=== PATIENT | male | born 1955 | race Caucasian/White ===

== ENCOUNTER 2016-09-04 10:48 | Inpatient (IN) ==
--- NOTE | 2016-09-04 11:19 | Anesthesia Evaluation PreOp ---
Date of Encounter: 09/04/16 Time of Encounter: 11:16 - Past History Planned Operation: Right caroid endarterectomy Cardiac History: ID, HTN, Hyperlipidemia, Other (hx thoracic outlet syndrome s/ p surgery 1997) Pulmonary History: Former smoker, COPD, Other (hx laryngeal cancer, hx trachestomy s/p reversal) SIDE PANEL HANGER History: CVA, TIA, Other (hx neck surgery) Other Medical History: Renal (ckd stage 2, hx renal artery stent) Anesthesia History: No Prior Anesthetic Complications Alcohol Use: none Drug use: marijuana Medications and Allergies ALPRAZolam [Xanax 1 MG Tablet] 1 mg PO TID 08/25/16 [History] Amlodipine Besylate 10 mg PO DAILY 08/25/16 [History] Aspirin [Lo-Dose Aspirin EC] 81 mg PO DAILY 08/25/16 [History] Atenolol 100 mg PO DAILY 08/25/16 [History] Clopidogrel [Plavix] 75 mg PO DAILY 08/25/16 [History] Oxycodone HCl/Acetaminophen [Percocet 5-325 mg Tablet] 1 each PO BID PRN [History] Sildenafil Citrate [Viagra] 100 mg PO DAILY PRN 08/25/16 [History] Simvastatin [Zocor] 40 mg PO HS 08/25/16 [History] Allergies codeine Adverse Reaction (Verified 08/25/16 07:15) Gastrointestinal Upset - Meds/Allergy Pre-op Review Medications Reviewed: Yes Allergies Reviewed: Yes Beta Blockers on Current Med List: Yes If Beta Blockers taken, Date/Time (Last Dose taken): atenolol 09-04-16 10 am Anesthesia Results - Labs Laboratory Tests 08/18/16 08/18/16 08/18/16 10:32 10:32 10:32 WBC 8.8 Hgb 17.0 H Hct 49.2 Plt Count 194 PT INR APTT 28.3 Sodium 140 Potassium 4.5 Chloride 103 Carbon Dioxide 30 H BUN 17 Creatinine 1.52 H Est GFR ( Amer) 57 L Est GFR (Non-Af Amer) 47 L BUN/Creatinine Ratio 11 Glucose 97 Calculated Osmolality 291 Calcium 10.0 08/30/16 15:01 WBC Hgb Hct Plt Count PT 12.3 H INR 1.1 APTT Sodium Potassium Chloride Carbon Dioxide BUN Creatinine Est GFR ( Amer) Est GFR (Non-Af Amer) BUN/Creatinine Ratio Glucose Calculated Osmolality Calcium - Imaging EKG: report reviewed, image reviewed (SB, moderate IV conduction delay, ST elevation (likely early repolarization)) Anesthesia Exam Last Vital Signs Temp 97.9 F 09/04/16 11:49 Pulse 59 09/04/16 11:49 Resp 18 09/04/16 11:49 BP 171/96 09/04/16 11:49 Pulse Ox 98 09/04/16 11:49 Weight: 83 kg NPO (# of Hours): >> 8 hrs - HEENT Pupil (Motor): Pupils equal, EOMI Mallampati: III Teeth: Edentulous Oral Opening: Greater than 3 - SIDE PANEL HANGER LOC: Oriented - Cardiac Rhythm: Regular Murmur: None - Pulmonary Breath Sounds: bilateral Clear Respiratory Effort: Symmetrical Anesthesia Assess/Plan ASA Score: 3 Modified [place] Scale for Level of Consciousness: Cooperative, oriented, and tranquil Anesthetic Plan: General, Precautions (C-mac due to hx laryngectomy (w removal epiglottis and one vocal cord); preserve spontaneous ventillation) Monitoring Plan: Standard Monitors Recovery Plan: PACU
[2016-09-04] MEDS ORDERED: CeFAZolin Pre 2,000 MG/100 ML 2,000 MG/100 ML BAG IVPB ONE (11:51)
[2016-09-04] MEDS ORDERED: Ringers Solution, Lactated 1,000 ML IVC SCH (12:00)
--- NOTE | 2016-09-04 12:09 | History & Physical Report ---
Date of Encounter: 09/04/16 Time of Encounter: 12:09 24 Hour HP Update - Instructions Instructions: If the History and Physical is less than 30 days old and was completed prior to A.M. admission and or procedure and has NOT been updated on calendar day of procedure please complete this update prior to performing procedure. - Update Patient reports changes in Medical Condition: No Changes in examination, assessment, or condition: No Changes in Medication: No Preop tests/diagnostics Reviewed: Yes Surgery Remains Indicated: Yes Consent for Planned Operative Procedure(s) Verified: Yes - Pre-Operative Checklist Preoperative Checklist Indicated: Yes Prophylactic Antibiotic Ordered: Yes Home Medications Include Beta Wilver: Yes Beta Wilver Taken Today (Day of Surgery): Yes Beta Wilver Taken Yesterday (Day Prior to Surgery): Yes Is VTE Prophylaxis Indicated?: Yes
[2016-09-04] MEDS ORDERED: Albuterol 2.5 MG/3 ML NEBULIZER ONE (12:12)
[2016-09-04] MEDS ORDERED: Albuterol 2.5 MG/3 ML NEBULIZER IH ONE (12:16)
[2016-09-04] MEDS ORDERED: 0.9 % Sodium Chloride 1,000 ML IVC SCH (12:30)
[2016-09-04] MEDS ORDERED: Lidocaine -MPF 2% 2 ML VIAL ONE ×3 (13:43→17:52)
[2016-09-04] MEDS ORDERED: Ondansetron 4 MG/2 ML VIAL ONE (13:43)
[2016-09-04] MEDS ORDERED: *HR* Rocuronium Bromide 50 MG/5 ML VIAL ONE (13:43)
[2016-09-04] MEDS ORDERED: *HR* Propofol 200 MG/20 ML VIAL IVP ONE (13:44)
[2016-09-04] MEDS ORDERED: *HR* Midazolam HCl 2 MG/2 ML VIAL ONE ×2 (13:44→17:52)
[2016-09-04] MEDS ORDERED: Heparin 1,000 UNITS/500 mL NS 500 ML ONE (13:46)
[2016-09-04] MEDS ORDERED: *HR* Remifentanil 1 MG VIAL IVP ONE ×2 (13:48)
[2016-09-04] MEDS ORDERED: Heparin 1,000 UNITS/500 mL NS 1,000 ML ONE (13:56)
[2016-09-04] MEDS ORDERED: Lidocaine 1% 20 ML MDV ONE (13:56)
[2016-09-04] MEDS ORDERED: *HR* FentaNYL (PF) 100 MCG/2 ML VIAL ONE ×2 (14:32→17:52)
[2016-09-04] MEDS ORDERED: EPHEDrine 50 MG/ML VIAL ONE (14:59)
[2016-09-04] MEDS ORDERED: *HR* Etomidate 40 MG/20 ML VIAL IVP ONE (17:52)
[2016-09-04] MEDS ORDERED: *HR* Phenylephrine 10 MG/ML VIAL ONE (17:55)
[2016-09-04] MEDS ORDERED: Dexamethasone 4 MG/ML VIAL ONE (18:01)
--- NOTE | 2016-09-04 18:01 | Operative Note ---
Date of procedure: 09/04/16 Pre-op diagnosis: right carotid stenosis Post-op diagnosis: same Procedure: right carotid endarterectomy with 8 Fr shunt and bovine pericardial patch angioplasty Complications: none Anesthesia: GETA Surgeon: Wiliam Lopez Estimated blood loss (cc): 100 Specimen: right carotid plaque Condition: stable Disposition: PACU Procedure in Detail: History Keith Thompson is a 61-year-old white male who has high-grade carotid artery stenosis by duplex scanning and confirmed on angiography. The patient has a history of head and neck cancer and is status post previous head and neck surgery and irradiation. Approximately 3 years ago he had undergone a left carotid endarterectomy. On surveillance scanning we had noted significant increase in the carotid velocities bilaterally. The most recent study showed significant changes about more so on the right side than on the left. An angiogram was performed which showed a very complex and ulcerated lesion of the right side with occlusion of the right external carotid artery. The patient now comes to surgery for this lesion. Procedure After informed consent was obtained the patient was taken to the operating room. General endotracheal anesthesia was established under arterial line pressure monitoring. The right neck was sterilely prepped and draped. A timeout protocol was observed. An oblique incision was made parallel to the anterior border of the sternocleidomastoid muscle. Dissection was carried down to the carotid sheath. The patient had moderate changes of the soft tissue secondary to his radiation with some fusing of the anatomic planes and a loss in the turgor of the tissue. There was also a blanching of the color of the tissue. Control was obtained of the carotid vessels. It was noted on the angiogram that the lesion was relatively proximal and this required an extension of the skin incision towards the clavicular head with division of the omohyoid muscle in order to obtain appropriate proximal control. After this was accomplished And was given in a dose of 5000 units. After a three-minute delay the vessels were clamped with the internal vessel clamped first. An 11 blade knife and Oneil scissors were used to open the carotid artery. The arteriotomy was very long and measured approximately 8 cm in length with the focus being on the common carotid artery. An 8 [place] shunt was then inserted atraumatically. Patency of the shunt was confirmed by the use of intraoperative Doppler. The endarterectomy was then begun at the distal aspect of the common carotid artery. A very complex and irregular plaque was identified. There appeared to be mixed and heterogeneous cellular elements as well as areas of old hemorrhage and calcific atherosclerotic disease. There were no findings of fresh thrombus. The orifice of the external carotid artery was occluded. There was diffuse atherosclerotic changes. The dissection was carried proximally and distally. The external carotid artery was able to be endarterectomized and opened and excellent retrograde flow was demonstrated. The superior thyroid was also endarterectomized. The endpoint on the internal carotid artery was smooth. No tacking sutures were necessary at this level. At the proximal level the plaque was very complex and needed to be divided in order for it to be excised from the body as it was well fused with the vessel wall and extended even more proximally. With the bulk of the atherosclerotic disease remove the bed of the vessel was then inspected for any residual debris. After this was removed the vessel was closed using a bovine pericardial patch angioplasty. Leaving a small space open on the suture line the shunt was clamped divided and removed and the final few sutures were placed. Appropriate backbleeding and flushing was then performed. The flow was directed first into the external carotid and then finally into the internal carotid artery. The patient tolerated this manipulation well and had no hemodynamic distress. Excellent pulsations and Doppler signals were observed throughout all of the carotid vessels with excellent pulse and signal particularly in the external carotid artery which prior to the endarterectomy was occluded and was without signal. The wound was irrigated and hemostasis achieved. A superficial cervical block using half percent Marcaine was performed. The wound was then closed in layers using absorbable suture. No drains were placed. A dry sterile dressing was applied to the right neck incision. The patient was extubated in the operating room and found to be neurologically stable. He was then taken from the operating room to the recovery room in good condition. The right carotid plaque was submitted for specimen analysis
[2016-09-04] MEDS ORDERED: *HR* Promethazine 25 MG/ML VIAL IVP PRN (18:20)
[2016-09-04] MEDS ORDERED: Albuterol 2.5 MG/3 ML NEBULIZER IH PRN (18:20)
[2016-09-04] MEDS ORDERED: *HR* HYDROmorphone (PF) 1 MG/ML SYRINGE IVP PRN (18:20)
[2016-09-04] MEDS ORDERED: *HR* Morphine 2 MG/ML SYRINGE IVP PRN ×2 (19:14)
[2016-09-04] MEDS ORDERED: *HR* OxyCODONE/APAP 5/325 TABLET PO PRN (19:14)
[2016-09-04] MEDS ORDERED: Acetaminophen 325 MG TABLET PO PRN (19:14)
[2016-09-04] MEDS ORDERED: NON-FORMULARY MEDICATION 1 EACH EACH (Sildenafil Citrate [Viagra] 100 MG) PO PRN (19:14)
[2016-09-04] MEDS ORDERED: Ondansetron 4 MG/2 ML VIAL IVP PRN (19:14)
[2016-09-04] MEDS ORDERED: Naloxone 0.4 MG/ML INJ IVP PRN (19:14)
--- NOTE | 2016-09-04 19:14 | Anesthesia Evaluation Post Op ---
Date of Encounter: 09/04/16 Time of Encounter: 19:14 - Vital Signs Vital Signs: Last Vital Signs Temp 97.2 F L 09/04/16 18:41 Pulse 67 09/04/16 19:07 Resp 18 09/04/16 19:07 BP 124/76 09/04/16 19:07 Pulse Ox 93 09/04/16 19:07 - Lungs Lungs: Clear Ascult./Percussion - Airway Airway: Non-obstructed - Cardiovascular Regular Rate - Mental Status Mental Status: Alert & Oriented, Answers Appropriately - Pain Pain Scale: 2 - Nausea Vomiting Nausea Vomiting: Not Present - Hydration Hydration: NPO, Santos catheter - Discharge PostOp Status: Transfer Patient to floor
[2016-09-04] MEDS ORDERED: Aspirin Enteric Coated 81 MG Tablet PO SCH (21:00)
[2016-09-04] MEDS: amLODIPine 5 MG TABLET PO SCH ×2 (21:32→21:39)
[2016-09-04] MEDS: ALPRAZolam 1 MG TABLET PO SCH (21:32)
[2016-09-04] MEDS ORDERED: ALPRAZolam 1 MG TABLET PO ONE (21:53)
[2016-09-04] MEDS: ceFAZolin 2,000 MG in D5% in Water 100 ML IVPB SCH (23:53)
[2016-09-05 05:03] LABS: Basophils % 0.2 %; Hematocrit 40.9 % (37.5-50.1); Immature Granulocytes % 0.3 % (0-4); Lymphocytes # 0.6 K/mcL (0.6-4.6); Lymphocytes % 4.8 %; Mean Corpuscular HGB Conc 34.2 g/dL (31.6-35.5); Mean Corpuscular Hemoglobin 31.7 pg (28.0-33.3); Mean Corpuscular Volume 92.7 fL (83.0-100.0); Monocytes # 0.3 K/mcL (0.0-1.3); Monocytes % 2.5 %; Platelet Count 173 K/mcL (140-400); Red Blood Count 4.41 M/mcL (4.19-5.50); Red Cell Distribution Width 13.2 % (11.5-14.5); Segmented Neutrophils % 92.2 %
[2016-09-05] MEDS: ceFAZolin 2,000 MG in D5% in Water 100 ML IVPB SCH (07:51)
[2016-09-05] MEDS: ALPRAZolam 1 MG TABLET PO SCH (08:47)
[2016-09-05 11:18] VITALS: BP 122/68
--- NOTE | 2016-09-05 14:32 | Discharge Summary ---
Date of Encounter: 09/05/16 Time of Encounter: 14:30 - Discharge Diagnosis (1) Carotid arterial disease Priority: Primary Status: Acute Comments: High-grade right carotid stenosis. Qualifiers: Laterality: bilateral Qualified Code(s): I77.9 - Disorder of arteries and arterioles, unspecified (2) COPD (chronic obstructive pulmonary disease) Priority: Secondary Status: Chronic Comments: Patient has chronic COPD under medical management. Qualifiers: COPD type: unspecified COPD Qualified Code(s): J44.9 - Chronic obstructive pulmonary disease, unspecified (3) Tobacco abuse Priority: Secondary Status: Chronic Comments: Patient has long-standing chronic tobacco abuse. Patient is aware of the medical dangers of this and has been counseled repeatedly to stop smoking. - Discharge Medications Home Medications: ALPRAZolam [Xanax 1 MG Tablet] 1 mg PO TID 08/25/16 [History] Amlodipine Besylate 10 mg PO HS 08/25/16 [History] Aspirin [Lo-Dose Aspirin EC] 81 mg PO HS 08/25/16 [History] Atenolol 100 mg PO DAILY 08/25/16 [History] Clopidogrel [Plavix] 75 mg PO HS 08/25/16 [History] Oxycodone HCl/Acetaminophen [Percocet 5-325 mg Tablet] 1 each PO BID PRN [History] Sildenafil Citrate [Viagra] 100 mg PO DAILY PRN 08/25/16 [History] Simvastatin [Zocor] 40 mg PO HS 08/25/16 [History] Allergies/Adverse Reactions: Allergies codeine Adverse Reaction (Verified 09/04/16 12:17) Gastrointestinal Upset Date of admission: 09/04/16 18:50 Primary care physician: Damián Cerna MD Consults: None Procedure(s) Performed: Right carotid endarterectomy with bovine pericardial patch angioplasty Discharging clinician: Wiliam Lopez Anticipated date of discharge: 09/05/16 - Patient Status Disposition: Home, Self-Care Condition: Good Functional capacity at discharge: independent ambulation Overall status at discharge: patient is progressing back to baseline - Discharge Instructions Follow Up With: Damián Cerna MD [Primary Care Provider] - 09/11/16 4:15 pm Wiliam Lopez MD [Partnered Physician] - 09/27/16 9:45 am Additional Instructions: Resume usual home medications. Tobacco cessation is critical to long-term health. Patient may ambulate inside and outside as tolerated. Patient is not to drive an automobile. No lifting greater than 10 pounds. No manual labor. Patient is to keep right neck incision dry for total of 5 days following surgery. - Diet and Activity Activity: increase activity as tolerated Diet: advance to your usual diet - Hospital Course Hospital course: Mr. Thompson is a 61 year old male Who was admitted yesterday for right carotid surgery. The patient has had a known history of carotid artery disease. He is status post a right carotid artery duplex scan and angiogram recently which demonstrated a critical lesion. He is status post a left carotid endarterectomy approximately 3-4 years ago. Patient also has a history of head and neck cancer as well as radiation. The patient also had spine surgery. Patient was taken to the operating room and had a right carotid endarterectomy performed under general endotracheal anesthesia. The patient had no periprocedural complications. On the afternoon of postoperative day #1 the patient was stable. He was neurologically intact to his baseline evaluation. His vital signs were stable. He was felt fit for discharge. Information regards to his diet and medications and wound care were provided to the patient prior to discharge. - Time Spent with Patient Total time spent providing and/or coordinating discharge services: Exam Vital Signs, Last 4 Hours Temp Pulse Resp BP Pulse Ox 09/05/16 11:16 97.8 F 59 18 122/68 94 09/05/16 11:00 70 General: Present: Conversant, No Apparent Distress, Well developed, Well nourished HEENT: Present: Normocephaly Neck: Absent: JVD, Tracheal deviation Neuro: Present: Alert and responsive, No focal deficits noted Vascular: Present: Surgical incisions (Right neck incision is clean and dry. There is no hematoma. There is no tracheal deviation.) - VTE Documentation of Mechanical Device: Intermittent pneumatic compression device
== END 2016-09-05 15:25 | disposition home or self-care (01) | DRG 39 ==
LOC: SAMDAY 10:48 → 2NNU 18:50
PROVIDERS: ADMIT Surgery Vascular Surgery; ATTEND Surgery Vascular Surgery

== ENCOUNTER 2018-04-11 08:51 | Inpatient (IN) ==
[2018-04-11] MEDS ORDERED: methylPREDNISolone 125 MG/2 ML VIAL IVP ONE (09:08)
[2018-04-11] MEDS ORDERED: Ipratropium/Albuterol Neb 3 ML IH ONE (09:08)
--- NOTE | 2018-04-11 09:24 | Emergency Department Note ---
Disposition Clinical Impression: Hypoxia, Elevated troponin COPD (chronic obstructive pulmonary disease) Qualifiers: COPD type: unspecified COPD Qualified Code(s): J44.9 - Chronic obstructive pulmonary disease, unspecified Pneumonia Qualifiers: Pneumonia type: due to unspecified organism Laterality: bilateral Lung location: unspecified part of lung Qualified Code(s): J18.9 - Pneumonia, unspecified organism Disposition: Admitted As Inpatient Condition: Fair Referrals: Damián Cerna MD [Primary Care Provider] - Forms: ED Satisfaction Letter General Adult HPI - General Chief complaint: ED Shortness of Breath/Dyspnea Stated complaint: sent from [facility] office for poss pne Time Seen by Provider: 04/11/18 08:59 Source: patient, family Mode of arrival: wheelchair Limitations: no limitations Nursing Notes Reviewed: Yes Vital Signs Reviewed: Yes - History of Present Illness HPI Narrative: 62-year-old male with significant past medical history of coronary artery disease and COPD presenting to the emergency department with chief complaint of cough and shortness of breath. According to the patient he has been sick for approximately 3-4 days. He had cough, fever and overall not feeling well. Had increased shortness of breath. Went to primary care physician's office today for follow-up and was sent here for further evaluation due to hypoxia. In the waiting room patient's initial oxygen saturation was 55% although his hands were cold. Patient was mentating well. states she is been trying NyQuil at home. Cough has resolved but now he is is having worsening shortness of breath. Has had fevers at home but unknown MAXIMUM TEMPERATURE. Pain Scale: 0 - Related Data Home Medications Medication Instructions Recorded Confirmed ALPRAZolam [Xanax 1 MG Tablet] 1 mg PO TID 08/25/16 01/14/18 Amlodipine Besylate 10 mg PO HS 08/25/16 01/14/18 Aspirin [Lo-Dose Aspirin EC] 81 mg PO HS 08/25/16 01/14/18 Atenolol 100 mg PO DAILY 08/25/16 01/14/18 Clopidogrel [Plavix] 75 mg PO HS 08/25/16 01/14/18 Oxycodone HCl/Acetaminophen 1 each PO DAILY 08/25/16 01/14/18 [Percocet 5-325 mg Tablet] Sildenafil Citrate [Viagra] 100 mg PO DAILY PRN 08/25/16 09/04/16 Simvastatin [Zocor] 40 mg PO HS 08/25/16 01/14/18 Previous Rx's Medication Instructions Recorded Nicotine Patch [Nicoderm] 7 mg TD DAILY #21 patch.td24 01/14/18 Nicotine Patch [Nicoderm] 14 mg TD DAILY #21 patch.td24 01/14/18 Nicotine Patch [Nicoderm] 21 mg TD DAILY #21 patch.td24 01/14/18 Allergies Allergy/AdvReac Type Severity Reaction Status Date / Time codeine AdvReac Gastrointestinal Verified 01/14/18 14:14 Upset All systems ED: reviewed and negative except as stated. Constitutional: Reports: fever Eyes: Reports: as per HPI ENT ED: Reports: as per HPI Cardiovascular: Reports: dyspnea on exertion Respiratory: Reports: cough, dyspnea, wheezes. Denies: hemoptysis Gastrointestinal: Reports: as per HPI Genitourinary: Reports: as per HPI Musculoskeletal: Reports: as per HPI Integumentary: Reports: as per HPI Neurological: Reports: as per HPI Psychiatric: Reports: as per HPI Endocrine: Reports: as per HPI Hematological/Lymphatic: Reports: as per HPI Allergic/Immunologic: Reports: as per HPI Past Medical History - Past Medical History Attestation: Yes The following information was validated with the patient. Medical history: Reports: coronary artery disease, CVA, hyperlipidemia, hypertension, myocardial infarction Surgical history: Reports: carotid endarterectomy, orthopedic, other Psychiatric history: Reports: no psych history - Social History Smoking Status: Current every day smoker Smokeless Tobacco Status: No Alcohol use: Reports: none Drug use: Reports: marijuana Physical Exam - General Limitations: no limitations General appearance: alert, in distress (moderate respiratory) - Head Head exam: atraumatic, normocephalic, normal inspection - Eye Eye exam: Absent: scleral icterus - ENT ENT exam: mucous membranes moist - Neck Neck exam: Present: full ROM - Chest Chest inspection: Present: symmetric chest wall rise - Respiratory Respiratory exam: Present: respiratory distress (moderate), other (Coarse breath sounds throughout. expiratory wheezing.) - Cardiovascular Cardiovascular exam: Present: regular rate, normal rhythm, normal heart sounds - Abdominal Exam Abdominal exam: Present: soft, Non-Tender. Absent: distention, guarding, rebound - Extremities Exam Extremities exam: Present: full ROM - Neurological Exam Neurological exam: Present: alert, oriented X3 - Psychiatric Psychiatric exam: Present: normal affect, normal mood - Skin Skin exam: Present: warm Course Course Narrative: 62-year-old male presenting to the emergency department with chief complaint shortness of breath and hypoxia. Patient has not been feeling well for a few days. Fevers, cough. Patient normally does not require oxygen. When patient first arrived oxygen saturation was 55% in the waiting room. Concern that this is a mixture of hypoxia and his hands being cold. Patient was immediately brought back to a trauma critical care resuscitation bay. Patient was placed on a nonrebreather with oxygen saturations in the upper 80s to low 90s. Coarse breath sounds throughout with wheezing. Respiratory brought to bedside. Chest x-ray completed along with laboratory analysis including blood cultures and lactic acid. 3 DuoNeb nebs were given and patient placed on BiPAP. Due to patient's symptoms we will also obtain a CTA once he is more hemodynamically stable. Patient agrees with this plan. Disposition most likely admission but pending results. - Reevaluation(s) Reevaluation #1: Patient's laboratory analysis shows an elevated BNP, elevated troponin. EKG does not show any acute abnormality. Patient also has chronic kidney disease. Chest x-ray concerning for unilateral edema versus multifocal infection. CTA was ordered. CTA does show multifocal pneumonia. No PE. Patient to be started on azithromycin and ceftriaxone. Patient placed on BiPAP and is doing significantly better. He is alert and oriented 3 and hemodynamically stable. At this time will plan to admit the patient. I spoke with the hospitalist [employer] Dr. Swift who agrees to accept the patient at this time. He would like us had an ABG. This has been added. Vital Signs Temperature 97.4 F L 04/11/18 08:53 Pulse Rate 82 04/11/18 08:53 Respiratory Rate 18 04/11/18 08:53 Blood Pressure 135/76 04/11/18 08:53 O2 Sat by Pulse Oximetry 55 04/11/18 08:53 Temperature 97.4 F L 04/11/18 08:53 Pulse Rate 89 04/11/18 11:42 Respiratory Rate 29 04/11/18 11:42 Blood Pressure 142/92 04/11/18 11:42 O2 Sat by Pulse Oximetry 99 04/11/18 11:42 Oxygen Delivery Oxygen Delivery Bipap Medical Decision Making - Lab Data Result diagrams: 04/11/18 09:13 04/11/18 09:02 Lab Results 04/11/18 04/11/18 04/11/18 Range/Units 09:02 09:13 09:13 WBC 7.9 (4.3-11.1) K/mcL RBC 4.31 (4.19-5.50) M/mcL Hgb 13.7 (12.9-16.9) g/dL Hct 39.8 (37.5-50.1) % MCV 92.3 (83.0-100.0) fL MCH 31.8 (28.0-33.3) pg MCHC 34.4 (31.6-35.5) g/dL RDW 13.9 (11.5-14.5) % Plt Count 200 (140-400) K/mcL MPV 11.1 (9.4-12.4) fL Seg Neutrophils % 72.0 % Band Neutrophils % 6.0 H (0-4) % Lymphocytes % 16.0 % Monocytes % 6.0 % Neutrophils # 6.2 (1.6-8.9) K/mcL Lymphocytes # 1.3 (0.6-4.6) K/mcL Monocytes # 0.5 (0.0-1.3) K/mcL Nucleated RBCs/100 WBC 0.3 H (0) /100 WBC Reactive Lymphocytes (Not Present) Toxic Granulation Present A (Not Present) Polychromasia 1+ A (Not Present) Sodium 137 (136-145) mEq/L Potassium 3.4 L (3.5-5.1) mEq/L Chloride 96 L (98-107) mEq/L Carbon Dioxide 31 H (23-29) mEq/L BUN 49 H (8-23) mg/dL Creatinine 1.57 H (0.70-1.30) mg/dL Est GFR ( Amer) 55 L (> 60) Est GFR (Non-Af Amer) 45 L (> 60) BUN/Creatinine Ratio 31 H (6-26) Glucose 118 H (70-105) mg/dL Calculated Osmolality 298 (280-300) Lactic Acid 1.1 (0.5-2.2) mmol/L Calcium 8.9 (8.6-10.3) mg/dL Troponin I 0.07 H* (< 0.04) ng/mL B-Natriuretic Peptide (Less than 100) pg/mL 04/11/18 Range/Units 09:13 WBC (4.3-11.1) K/mcL RBC (4.19-5.50) M/mcL Hgb (12.9-16.9) g/dL Hct (37.5-50.1) % MCV (83.0-100.0) fL MCH (28.0-33.3) pg MCHC (31.6-35.5) g/dL RDW (11.5-14.5) % Plt Count (140-400) K/mcL MPV (9.4-12.4) fL Seg Neutrophils % % Band Neutrophils % (0-4) % Lymphocytes % % Monocytes % % Neutrophils # (1.6-8.9) K/mcL Lymphocytes # (0.6-4.6) K/mcL Monocytes # (0.0-1.3) K/mcL Nucleated RBCs/100 WBC (0) /100 WBC Reactive Lymphocytes (Not Present) Toxic Granulation (Not Present) Polychromasia (Not Present) Sodium (136-145) mEq/L Potassium (3.5-5.1) mEq/L Chloride (98-107) mEq/L Carbon Dioxide (23-29) mEq/L BUN (8-23) mg/dL Creatinine (0.70-1.30) mg/dL Est GFR ( Amer) (> 60) Est GFR (Non-Af Amer) (> 60) BUN/Creatinine Ratio (6-26) Glucose (70-105) mg/dL Calculated Osmolality (280-300) Lactic Acid (0.5-2.2) mmol/L Calcium (8.6-10.3) mg/dL Troponin I (< 0.04) ng/mL B-Natriuretic Peptide 979 H (Less than 100) pg/mL - EKG Data EKG #1 EKG attestation: Yes I reviewed and interpreted this EKG. EKG results narrative: Atrial fibrillation. 97 beats for minute. QRS 119, QTC 478. No sign of acute ST segment elevation or ischemia. Compared to previous EKG completed on 08/18/2016 new Atrial fibrillation noted. Attestation Statement - Attestation Attestation: I, Buzz Ge DO, examined this patient [id number] and my medical decision-making was reviewed with Dr. Moon Francois, Resident Physician. I agree with the documented findings, disposition and treatment plan as described except to the extent set forth below. Please see my progress notes for details.
[2018-04-11 09:34] LABS: Hematocrit 39.8 % (37.5-50.1); Hemoglobin 13.7 g/dL (12.9-16.9); Mean Corpuscular HGB Conc 34.4 g/dL (31.6-35.5); Mean Corpuscular Hemoglobin 31.8 pg (28.0-33.3); Mean Corpuscular Volume 92.3 fL (83.0-100.0); Mean Platelet Volume 11.1 fL (9.4-12.4); Monocytes # 0.5 K/mcL (0.0-1.3); Nucleated Red Blood Cells 0.3 /100 WBC (0); Platelet Count 200 K/mcL (140-400); Red Blood Count 4.31 M/mcL (4.19-5.50); Red Cell Distribution Width 13.9 % (11.5-14.5)
[2018-04-11] MEDS ORDERED: Isovue-370 500 ML BOTTLE IVP ONE (09:35)
[2018-04-11] MEDS: cefTRIAXone 2,000 MG in Water for inj. (sterile) 20 ML 20 ML IVP SCH (09:53)
[2018-04-11] MEDS: Azithromycin 500 MG in D5% in Water 250 ML IVPB SCH (09:53)
[2018-04-11 09:58] LABS: Calcium 8.9 mg/dL (8.6-10.3); Potassium 3.4 mEq/L (3.5-5.1)
[2018-04-11 10:04] LABS: Troponin I 0.07 ng/mL (< 0.04)
[2018-04-11 10:26] LABS: Lymphocytes # 1.3 K/mcL (0.6-4.6); Neutrophils # 6.2 K/mcL (1.6-8.9); Toxic Granulation Present (Not Present)
[2018-04-11 10:28] LABS: Polychromasia 1+ (Not Present)
--- NOTE | 2018-04-11 10:31 | Emergency Department Note ---
Disposition Clinical Impression: COPD (chronic obstructive pulmonary disease), Pneumonia, Hypoxia, Elevated troponin Disposition: Admitted As Inpatient Condition: Fair Referrals: Damián Cerna MD [Primary Care Provider] - Forms: ED Satisfaction Letter Time of Disposition: 12:07 General Adult HPI - General Chief complaint: ED Shortness of Breath/Dyspnea Stated complaint: sent from [facility] office for poss pne Time Seen by Provider: 04/11/18 08:59 Source: patient, family Mode of arrival: wheelchair Limitations: no limitations - History of Present Illness Pain Scale: 0 - Related Data Home Medications Medication Instructions Recorded Confirmed ALPRAZolam [Xanax 1 MG Tablet] 1 mg PO TID 08/25/16 01/14/18 Amlodipine Besylate 10 mg PO HS 08/25/16 01/14/18 Aspirin [Lo-Dose Aspirin EC] 81 mg PO HS 08/25/16 01/14/18 Atenolol 100 mg PO DAILY 08/25/16 01/14/18 Clopidogrel [Plavix] 75 mg PO HS 08/25/16 01/14/18 Oxycodone HCl/Acetaminophen 1 each PO DAILY 08/25/16 01/14/18 [Percocet 5-325 mg Tablet] Sildenafil Citrate [Viagra] 100 mg PO DAILY PRN 08/25/16 09/04/16 Simvastatin [Zocor] 40 mg PO HS 08/25/16 01/14/18 Previous Rx's Medication Instructions Recorded Nicotine Patch [Nicoderm] 7 mg TD DAILY #21 patch.td24 01/14/18 Nicotine Patch [Nicoderm] 14 mg TD DAILY #21 patch.td24 01/14/18 Nicotine Patch [Nicoderm] 21 mg TD DAILY #21 patch.td24 01/14/18 Allergies Allergy/AdvReac Type Severity Reaction Status Date / Time codeine AdvReac Gastrointestinal Verified 01/14/18 14:14 Upset Constitutional: Reports: fever Eyes: Reports: as per HPI ENT ED: Reports: as per HPI Cardiovascular: Reports: dyspnea on exertion Respiratory: Reports: cough, dyspnea, wheezes. Denies: hemoptysis Gastrointestinal: Reports: as per HPI Genitourinary: Reports: as per HPI Musculoskeletal: Reports: as per HPI Integumentary: Reports: as per HPI Neurological: Reports: as per HPI Psychiatric: Reports: as per HPI Endocrine: Reports: as per HPI Hematological/Lymphatic: Reports: as per HPI Allergic/Immunologic: Reports: as per HPI Past Medical History - Past Medical History Medical history: Reports: coronary artery disease, CVA, hyperlipidemia, h ypertension, myocardial infarction Surgical history: Reports: carotid endarterectomy, orthopedic, other Psychiatric history: Reports: no psych history - Social History Smoking Status: Current every day smoker Smokeless Tobacco Status: No Alcohol use: Reports: none Drug use: Reports: marijuana Physical Exam - General Limitations: no limitations General appearance: alert, in distress (moderate respiratory) Course Vital Signs Temperature 97.4 F L 04/11/18 08:53 Pulse Rate 82 04/11/18 08:53 Respiratory Rate 18 04/11/18 08:53 Blood Pressure 135/76 04/11/18 08:53 O2 Sat by Pulse Oximetry 55 04/11/18 08:53 Temperature 97.4 F L 04/11/18 08:53 Pulse Rate 89 04/11/18 11:42 Respiratory Rate 29 04/11/18 11:42 Blood Pressure 142/92 04/11/18 11:42 O2 Sat by Pulse Oximetry 99 04/11/18 11:42 Oxygen Delivery Oxygen Delivery Bipap Medical Decision Making - Lab Data Result diagrams: 04/11/18 09:13 04/11/18 09:02 Lab Results 04/11/18 04/11/18 04/11/18 Range/Units 09:02 09:13 09:13 WBC 7.9 (4.3-11.1) K/mcL RBC 4.31 (4.19-5.50) M/mcL Hgb 13.7 (12.9-16.9) g/dL Hct 39.8 (37.5-50.1) % MCV 92.3 (83.0-100.0) fL MCH 31.8 (28.0-33.3) pg MCHC 34.4 (31.6-35.5) g/dL RDW 13.9 (11.5-14.5) % Plt Count 200 (140-400) K/mcL MPV 11.1 (9.4-12.4) fL Seg Neutrophils % 72.0 % Band Neutrophils % 6.0 H (0-4) % Lymphocytes % 16.0 % Monocytes % 6.0 % Neutrophils # 6.2 (1.6-8.9) K/mcL Lymphocytes # 1.3 (0.6-4.6) K/mcL Monocytes # 0.5 (0.0-1.3) K/mcL Nucleated RBCs/100 WBC 0.3 H (0) /100 WBC Reactive Lymphocytes (Not Present) Toxic Granulation Present A (Not Present) Polychromasia 1+ A (Not Present) Sodium 137 (136-145) mEq/L Potassium 3.4 L (3.5-5.1) mEq/L Chloride 96 L (98-107) mEq/L Carbon Dioxide 31 H (23-29) mEq/L BUN 49 H (8-23) mg/dL Creatinine 1.57 H (0.70-1.30) mg/dL Est GFR ( Amer) 55 L (> 60) Est GFR (Non-Af Amer) 45 L (> 60) BUN/Creatinine Ratio 31 H (6-26) Glucose 118 H (70-105) mg/dL Calculated Osmolality 298 (280-300) Lactic Acid 1.1 (0.5-2.2) mmol/L Calcium 8.9 (8.6-10.3) mg/dL Troponin I 0.07 H* (< 0.04) ng/mL B-Natriuretic Peptide (Less than 100) pg/mL 04/11/18 Range/Units 09:13 WBC (4.3-11.1) K/mcL RBC (4.19-5.50) M/mcL Hgb (12.9-16.9) g/dL Hct (37.5-50.1) % MCV (83.0-100.0) fL MCH (28.0-33.3) pg MCHC (31.6-35.5) g/dL RDW (11.5-14.5) % Plt Count (140-400) K/mcL MPV (9.4-12.4) fL Seg Neutrophils % % Band Neutrophils % (0-4) % Lymphocytes % % Monocytes % % Neutrophils # (1.6-8.9) K/mcL Lymphocytes # (0.6-4.6) K/mcL Monocytes # (0.0-1.3) K/mcL Nucleated RBCs/100 WBC (0) /100 WBC Reactive Lymphocytes (Not Present) Toxic Granulation (Not Present) Polychromasia (Not Present) Sodium (136-145) mEq/L Potassium (3.5-5.1) mEq/L Chloride (98-107) mEq/L Carbon Dioxide (23-29) mEq/L BUN (8-23) mg/dL Creatinine (0.70-1.30) mg/dL Est GFR ( Amer) (> 60) Est GFR (Non-Af Amer) (> 60) BUN/Creatinine Ratio (6-26) Glucose (70-105) mg/dL Calculated Osmolality (280-300) Lactic Acid (0.5-2.2) mmol/L Calcium (8.6-10.3) mg/dL Troponin I (< 0.04) ng/mL B-Natriuretic Peptide 979 H (Less than 100) pg/mL Attestation Statement - Attestation Attestation: I, Buzz Ge DO, examined this patient [id number] and my medical decision-making was reviewed with Dr. Moon Francois, Resident Physician. I agree with the documented findings, disposition and treatment plan as described except to the extent set forth below. Please see my progress notes for details. 62-year-old male presents emergency room for evaluation of progressively worsening shortness of breath. Patient has known history of COPD but does not require oxygen at home. During the triage process the patient is found to have a pulse ox of 55% with what appeared to be good waveform. The placed him on 4 L of oxygen and brought him back. Patient is denying chest pain but does have significant work of breathing shortness of breath. Denies any recent fevers or chills. No complaints of nausea vomiting or diarrhea. He has not had any headaches or vision change. Vital signs reviewed and symptomatically controlled to be established. Respiratory was called to the bedside with breathing treatments and BiPAP ordered. She is resting and sitting upright in the bed. He does have significantly diminished breath sounds bilaterally along with accessory muscle use. Oropharynx is patent. Trachea is midline. No stridor or trismus noted. He has coarse crackles along with diminished aeration noted on bilateral lung exam. Heart is regular. Abdomen is soft no pulsatile masses or lesions. Extremities are normal. No neurologic deficits noted on exam. Patient is alert he is oriented and answering questions appropriately. Symptomatically controlled to be completed. Detailed dyspnea workup and antibiotic regimen started with concern for sepsis versus severe COPD exacerbation. Concerning source would be pulmonary in nature. Appropriate medical intervention has been provided. He does not show any acute signs of decline or blood pressure related abnormality. Patient will be monitored closely and disposition will be determined. See detailed documentation the physical exam, medical intervention, medical decision-making and disposition in the resident physician's note. No critical care applied to the patient's treatment course initially. 1000 Patient has bilateral pneumonia with concern for possible hemothorax. Patient is on blood thinners. Clinical presentation is not consistent with blood in the chest wall. Patient is responding appropriately to the BiPAP and breathing treatments. Pulse ox has stabilized and blood pressure is normalized. Patient does have an elevated troponin with no comparable lab result. Most of this is probably secondary to stress from the infectious etiology. BNP is elevated as well. The remainder of his labs appear to be chronic in nature at this time. Will monitor closely and admission process will be established. CT angiography the chest was added on in light of his renal insufficiency as well as the concerning findings on chest x-ray. 1145 Patient is stabilizing with the BiPAP. Labs are coming back with derangements but appear to be stable. The hospitalist Dr. valiente requested an ABG to be collected but otherwise had no other recommendations. CT angiography confirms multifocal pneumonia. Patient is otherwise clinically stable at this time is significantly better. Patient will be monitored here in the emergency department until admission process is completed patient has diagnosis of sepsis but no acute signs of septic shock with stable vital signs and a normal lactic acid. Patient is otherwise been appropriately intervened for infectious etiology exacerbating COPD.
[2018-04-11] MEDS ORDERED: Aspirin 81 MG TAB.CHEW PO STA (12:07)
[2018-04-11] MEDS ORDERED: *HR* OxyCODONE/APAP 5/325 TABLET PO PRN (12:56)
[2018-04-11 13:09] LABS: ABG Base Excess 3 mEq/L (-2 to 3); ABG HCO3 29 mEq/L (21-27); ABG Oxygen Saturation 88 % (95-98); ABG PCO2 48 mmHg (35-45); ABG PH 7.39 pH Units (7.32-7.45); ABG PO2 56 mmHg (85-104); ABG TCO2 30 mEq/L (20-26)
--- NOTE | 2018-04-11 13:37 | Internal Med History&Physical ---
Date of Encounter: 04/11/18 Time of Encounter: 12:46 Internal Medicine - H&P: HPI Chief complaint: Dyspnea Admitted From: Home History of present illness: Mr. Thompson is a 62 year old male with a possible medical history of COPD, coronary artery disease, tobacco use, hyperlipidemia who presented with a two- day history off progressive worsening of shortness of breath. The patient started with cough 4 days ago and went to his doctor's office. The next day he worked in the yard and since then he has experienced worsening of dyspnea. The patient was brought in after his sats were 55% on room air. He was put on 4 L of oxygen and brought the ER. Patient did not have chest pain but his troponin was borderline elevated at 0.07. The patient was found to be in A. fib without rapid ventricular response. The patient has had previous strokes and TIAs but does not recall having a diagnosis of A. fib in the past. The patient was put on a BiPAP and is doing better now. The patient had a chest x-ray and CTA of which was consistent with bilateral multifocal pneumonia. His influenza test was negative. Past Med Surg Social Fam HX - Past Medical History Medical history: coronary artery disease, CVA, hyperlipidemia, hypertension, myocardial infarction Additional medical history: PVD, CKD, TIA, HEADACHES, LARYNGEAL CANCER, CAROTID STENOSIS, left sided thoracic outlet syndrome Psychiatric history: no psych history - Past Surgical History Surgical History: carotid endarterectomy, orthopedic, other Additional surgical history: RADIATION, C5-C6 SURGERY, LYMPH NODE RESECTION, LARYNGECTOMY, RENAL ARTERY STENT - Social History Smoking Status: Former smoker Smokeless Tobacco Status: No (The patient quit smoking at the end of last year.) Alcohol use: none Drug use: marijuana - Additional Family History Additional family history: The patient's brothers have had heart problems as well as a grandmother. Internal Medicine - H&P: Meds ALPRAZolam [Xanax 1 MG Tablet] 1 mg PO TID 08/25/16 [History] Amlodipine Besylate 10 mg PO HS 08/25/16 [History] Aspirin [Lo-Dose Aspirin EC] 81 mg PO HS 08/25/16 [History] Atenolol 100 mg PO DAILY 08/25/16 [History] Clopidogrel [Plavix] 75 mg PO HS 08/25/16 [History] Oxycodone HCl/Acetaminophen [Percocet 5-325 mg Tablet] 1 each PO DAILY 08/25/16 [History] Sildenafil Citrate [Viagra] 100 mg PO DAILY PRN 08/25/16 [History] Simvastatin [Zocor] 40 mg PO HS 08/25/16 [History] Nicotine Patch [Nicoderm] 7 mg TD DAILY #21 patch.td24 01/14/18 [Rx] Nicotine Patch [Nicoderm] 14 mg TD DAILY #21 patch.td24 01/14/18 [Rx] Nicotine Patch [Nicoderm] 21 mg TD DAILY #21 patch.td24 01/14/18 [Rx] Allergy/AdvReac Type Severity Reaction Status Date / Time codeine AdvReac Gastrointestinal Verified 01/14/18 14:14 Upset All Systems PM: A 10-system review of systems was performed and is negative for pertinent findings except as documented above in the HPI. - Constitutional Vitals: Temp Pulse Resp BP Pulse Ox 97.4 F L 89 29 142/92 99 04/11/18 08:53 04/11/18 11:42 04/11/18 11:42 04/11/18 11:42 04/11/18 11:42 General appearance: Present: A&O X 3, answers questions appropriately Exam: 62 y male in ED bed in mod resp distress. - Respiratory Respiratory exam: Present: decreased breath sounds, prolonged expiratory phase, respiratory distress, wheezes - Cardiovascular Cardiovascular exam: Present: irregular rhythm, +S1, +S2 Internal Med - H&P Results - Labs CBC & Chem 7: 04/11/18 09:13 04/11/18 09:02 Labs: Short CBC 04/11/18 Range/Units 09:13 WBC 7.9 (4.3-11.1) K/mcL Hgb 13.7 (12.9-16.9) g/dL Hct 39.8 (37.5-50.1) % Plt Count 200 (140-400) K/mcL Neutrophils # 6.2 (1.6-8.9) K/mcL BMP 04/11/18 09:02 Sodium 137 Potassium 3.4 L Chloride 96 L Carbon Dioxide 31 H BUN 49 H Creatinine 1.57 H Glucose 118 H Calcium 8.9 Cardiac Enzymes 04/11/18 Range/Units 09:02 Troponin I 0.07 H* (< 0.04) ng/mL - ABG Interpretation ABG results: 04/11/18 13:06 ABG pH 7.39 ABG pCO2 48 H ABG pO2 56 L ABG HCO3 29 H ABG Total CO2 30 H ABG O2 Saturation 88 L ABG Base Excess 3 - EKG Data no acute changes Rhythm: A.Fib - Impressions ITS Impressions Chest X-Ray 04/11/18 09:02 IMPRESSION: 1. Airspace opacities, right greater than left. Differential considerations are broad and include asymmetric edema, pneumonia, or hemorrhage. D/ / 04/11/2018 09:37:45 Kylee Cosme MD / bcarter Interpreting Provider: Kylee Cosme MD Chest CTA 04/11/18 09:35 IMPRESSION: Negative study for pulmonary embolism. Patchy/nodular areas of consolidation and ground-glass opacity to the lungs bilaterally, right more than left and involving all lobes, felt to be most compatible with multifocal infectious/inflammatory process. Follow-up to resolution recommended. Small right pleural effusion. Mediastinal and bilateral hilar lymphadenopathy, nonspecific but likely reactive. Atherosclerosis to include coronary artery disease. D/ / 04/11/2018 11:31:27 Julius Hu MD / lgray Interpreting Provider: Julius Hu MD - Assessment and Plan (1) Pneumonia Current Visit: Yes Status: Acute Assessment and plan: Admit patient to acute medicine with telemetry. Patient will be treated with IV ceftriaxone and azithromycin. Will give oxygen and nebs. Will check a pro- calcitonin level since the white count is not elevated. Note that influenza was negative. Follow blood cultures. Qualifiers: Pneumonia type: due to unspecified organism Laterality: bilateral Lung location: unspecified part of lung Qualified Code(s): J18.9 - Pneumonia, unspecified organism (2) Hypoxia Current Visit: Yes Status: Acute Assessment and plan: Acute on chronic respiratory failure. Supportive therapy with BiPAP and oxygen along with nebs and IV steroids. (3) Elevated troponin Current Visit: Yes Status: Acute Assessment and plan: Check serial troponins. It seems that the first value was elevated from demand ischemia. It could also be elevated from new onset A. fib. (4) A-fib Current Visit: Yes Status: Acute Assessment and plan: [id number] of 4. Continue telemetry. Check troponins. Check echocardiogram. Start patient on Lovenox 1 mg/kg subcutaneous every 12 hours. Once patient is stable will have a detailed discussion with patient regarding future outpatient anticoagulation such as warfarin, apixaban or Xarelto. Qualifiers: Atrial fibrillation type: unspecified Qualified Code(s): I48.91 - Unspecified atrial fibrillation (5) COPD (chronic obstructive pulmonary disease) Current Visit: Yes Status: Chronic Assessment and plan: Nebs, O2, IV steroids. Cont home meds for other ch conditions such as CAD, Anxiety d/o and cervical DDD. Qualifiers: COPD type: unspecified COPD Qualified Code(s): J44.9 - Chronic obstructive pulmonary disease, unspecified - Time Spent With Patient Total time spent is greater than 50% in coordination of care (as documented) at patient's floor/unit and/or counseling patient: Greater than 35 minutes
--- NOTE | 2018-04-11 14:03 | Electrocardiograph Report ---
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
[2018-04-11] MEDS: Pantoprazole 40 MG VIAL IVP SCH (14:52)
[2018-04-11] MEDS ORDERED: ALPRAZolam 1 MG TABLET PO SCH (15:00)
[2018-04-11] MEDS: Ipratropium/Albuterol Neb 3 ML IH SCH ×2 (15:46→20:02)
[2018-04-11] MEDS ORDERED: Potassium Chloride 20 MEQ, Lidocaine 1% 2 ML in D5% in Water 250 ML IVPB ONE (16:36)
[2018-04-11] MEDS: *HR* Enoxaparin 80 MG/0.8 ML SYRINGE SQ SCH (19:11)
[2018-04-11] MEDS: methylPREDNISolone 125 MG/2 ML VIAL IVP SCH (19:11)
[2018-04-11] MEDS: amLODIPine 5 MG TABLET PO SCH (20:00)
[2018-04-12] MEDS: methylPREDNISolone 125 MG/2 ML VIAL IVP SCH ×5 (00:07→23:36)
[2018-04-12] MEDS: Ipratropium/Albuterol Neb 3 ML IH SCH ×7 (00:47→23:05)
[2018-04-12 04:44] LABS: Basophils % 0.2 %; Hematocrit 36.1 % (37.5-50.1); Hemoglobin 12.5 g/dL (12.9-16.9); Immature Granulocytes % 0.7 % (0-4); Lymphocytes # 0.5 K/mcL (0.6-4.6); Lymphocytes % 8.1 %; Mean Corpuscular HGB Conc 34.6 g/dL (31.6-35.5); Mean Corpuscular Hemoglobin 31.6 pg (28.0-33.3); Mean Corpuscular Volume 91.2 fL (83.0-100.0); Mean Platelet Volume 10.9 fL (9.4-12.4); Monocytes # 0.1 K/mcL (0.0-1.3); Monocytes % 2.3 %; Nucleated Red Blood Cells 0.3 /100 WBC (0); Platelet Count 238 K/mcL (140-400); Red Blood Count 3.96 M/mcL (4.19-5.50); Red Cell Distribution Width 13.9 % (11.5-14.5); Segmented Neutrophils % 88.7 %
[2018-04-12 04:52] LABS: BUN/Creatinine Ratio 30 (6-26); Blood Urea Nitrogen 43 mg/dL (8-23); Calcium 8.4 mg/dL (8.6-10.3); Carbon Dioxide 29 mEq/L (23-29); Chloride 97 mEq/L (98-107); Glucose 192 mg/dL (70-105); Osmolality,Calculated 302 (280-300); Potassium 3.7 mEq/L (3.5-5.1); Sodium 138 mEq/L (136-145); eGFR For Non-African Americans 51 (> 60)
[2018-04-12 04:53] LABS: Neutrophils # 5.3 K/mcL (1.6-8.9)
[2018-04-12] MEDS: *HR* Enoxaparin 80 MG/0.8 ML SYRINGE SQ SCH ×2 (05:16→16:13)
[2018-04-12 06:25] LABS: Platelet Estimate Normal (Normal)
[2018-04-12] MEDS: Aspirin Enteric Coated 81 MG Tablet PO SCH (09:16)
[2018-04-12] MEDS: Pantoprazole 40 MG VIAL IVP SCH (09:17)
[2018-04-12] MEDS: cefTRIAXone 2,000 MG in Water for inj. (sterile) 20 ML 20 ML IVP SCH (09:17)
[2018-04-12] MEDS: Azithromycin 500 MG in D5% in Water 250 ML IVPB SCH (09:18)
--- NOTE | 2018-04-12 11:28 | Internal Med Progress Note ---
<PierceMalgorzata Chema - Last Filed: 04/12/18 14:12> Hospitalist Progress Note - Encounter Date of Encounter: 04/12/18 Time of Encounter: 09:34 - Subjective Interval History: Patient sitting up comfortably in bed upon examination. He states that cough and shortness of breath have improved since initial presentation. Patient tolerating decrease supplemental oxygen from 8 L to 5 L. Patient denies lightheadedness, pain, fever, chills, nausea, vomiting. - Exam Vitals: Temp Pulse Resp BP Pulse Ox 97.4 F L 97 18 102/87 92 04/12/18 07:57 04/12/18 07:57 04/12/18 11:10 04/12/18 07:57 04/12/18 11:10 Exam: General: No acute distress Head: normocephalic, atraumatic Eye: EOMI Mouth: Mucosa moist Respiratory: Coarse breath sounds noted throughout, not in respiratory distress Cardiovascular: Irregularly irregular rate and rhythm on telemetry. No edema noted Abdomen: Abdomen is soft, nontender, non-distended. Bowel sounds normal. Musculoskeletal: No cyanosis, clubbing or joint swelling Skin: warm, dry, intact. No rashes or lesions noted. Neuro: Alert oriented x 3, no focal deficits Psych: Patient's mood and affect normal - Assessment and Plan (1) Acute respiratory failure with hypoxia Current Visit: Yes Status: Acute Assessment and Plan: Likely secondary to pneumonia Patient initially on BiPAP, now tolerating 5 L supplemental O2 via mask Not on supplemental O2 at home Wean O2 as tolerated Continue nebs and IV steroids (2) Multifocal pneumonia Current Visit: Yes Status: Acute Assessment and Plan: Suspect possible aspiration pneumonia due to patient's history of esophageal cancer and difficulty swallowing Chest CTA 04/11/18multifocal consolidations and groundglass opacity bilaterally, right more than the left. Small right pleural effusion. Mediastinal and bilateral hilar lymphadenopathy. Discontinued ceftriaxone and azithromycin switched to Unasyn for better anaerobic coverage (stop date 04/19/18) NPO, Modified barium swallow pending (3) COPD (chronic obstructive pulmonary disease) Current Visit: Yes Status: Chronic Assessment and Plan: Acute exacerbation likely secondary to suspected aspiration pneumonia Continue nebs, IV steroids, supplemental O2 (4) A-fib Current Visit: Yes Status: Acute Assessment and Plan: CHADSVASC 4 TTE 04/11/18LVEF 45%, LV segmental wall motion abnormalities. Indeterminate diastolic function. Atypical septal motion consistent with bundle branch block. Biatrial enlargement. Mildmoderate MR, mild TR, mild pulmonary hypertension. Continue Lovenox for now, will transition to oral for discharge pending boogie check (5) CKD (chronic kidney disease) Current Visit: Yes Status: Chronic Assessment and Plan: Chronic, stable Creatinine 1.41, appears to be at baseline (6) Head and neck cancer Current Visit: Yes Status: Chronic Assessment and Plan: Supportive care Failed bedside speech eval, NPO for modified barium swallow (7) Carotid arterial disease Current Visit: Yes Status: Chronic Assessment and Plan: Continue ASA, statin, BB DVT Prophylaxis: SQ Lovenox - Time Spent with Patient Total time spent is greater than 50% in coordination of care (as documented) at patient's floor/unit and/or counseling patient: Internal Medicine: Result - Labs CBC & Chem 7: 04/12/18 04:04 04/12/18 04:04 Labs: Short CBC 04/12/18 Range/Units 04:04 WBC 6.0 (4.3-11.1) K/mcL Hgb 12.5 L (12.9-16.9) g/dL Hct 36.1 L (37.5-50.1) % Plt Count 238 (140-400) K/mcL Neutrophils # 5.3 (1.6-8.9) K/mcL BMP 04/12/18 04:04 Sodium 138 Potassium 3.7 Chloride 97 L Carbon Dioxide 29 BUN 43 H Creatinine 1.41 H Glucose 192 H Calcium 8.4 L Cardiac Enzymes 04/11/18 04/11/18 Range/Units 15:16 21:45 Troponin I 0.06 H* 0.05 H* (< 0.04) ng/mL - ABG Interpretation ABG results: ABG ABG pH 7.39 pH Units (7.32-7.45) 04/11/18 13:06 ABG pCO2 48 mmHg (35-45) H 04/11/18 13:06 ABG pO2 56 mmHg (85-104) L 04/11/18 13:06 ABG O2 Saturation 88 % (95-98) L 04/11/18 13:06 - Impressions Impressions Chest X-Ray 04/11/18 09:02 IMPRESSION: 1. Airspace opacities, right greater than left. Differential considerations are broad and include asymmetric edema, pneumonia, or hemorrhage. D/ / 04/11/2018 09:37:45 Kylee Cosme MD / [facility] Interpreting Provider: Kylee Cosme MD Chest CTA 04/11/18 09:35 IMPRESSION: Negative study for pulmonary embolism. Patchy/nodular areas of consolidation and ground-glass opacity to the lungs bilaterally, right more than left and involving all lobes, felt to be most compatible with multifocal infectious/inflammatory process. Follow-up to resolution recommended. Small right pleural effusion. Mediastinal and bilateral hilar lymphadenopathy, nonspecific but likely reactive. Atherosclerosis to include coronary artery disease. D/ / 04/11/2018 11:31:27 [facility] Provider: Julius Hu MD Echocardiogram 04/11/18 13:31 Impressions: LVEF 45%. LV segmental wall motion abnormalities (see Diagram below). Indeterminate diastolic function. Atypical septal motion consistent with bundle branch block. RV size is normal with low normal systolic function. Bi-atrial enlargement. Mild-moderate mitral regurgitation. Mild tricuspid regurgitation. Mild pulmonary hypertension. Left Ventricular Wall Motion: Rest Echo Findings The apex, apical inferior, apical anterior, mid anterior, basal anterior, apical septal, mid inferior septal, basal inferior septal, apical lateral, mid anterior lateral, basal anterior lateral, mid anterior septal and basal anterior septal green were hypokinetic. The mid inferior, basal inferior and basal inferior lateral green were akinetic. The mid inferior lateral wall was not visualized. Findings: Study Quality * Technically adequate exam. ECG Findings * Atrial fibrillation. Left Ventricle * LVEF 45%. * Indeterminate diastolic function. * Atypical septal motion consistent with bundle branch block. * LV chamber size and wall thickness are normal. Right Ventricle * RV size is normal with low normal systolic function. Left Atrium * Severely dilated left atrium. Right Atrium * Moderately dilated right atrium. Aortic Valve * No aortic regurgitation. * Aortic valve not optimally visualized. * No aortic stenosis. Mitral Valve * No mitral stenosis. * Mild-moderate mitral regurgitation. * Normal mitral valve structure. Tricuspid Valve * Tricuspid valve not well visualized. * Mild tricuspid regurgitation. * Estimated RA pressure is 20 mmHg. * Estimated RVSP is 42 mmHg. * Mild pulmonary hypertension. Pulmonic Valve * Pulmonic valve is not well visualized. * No pulmonic stenosis. * No pulmonic regurgitation. Pulmonary Artery * Pulmonary artery not well visualized. Aorta * Normally sized aortic root. Pericardium * There is no pericardial effusion present. Interatrial Septum * No evidence of PFO by color Doppler. IVC * The IVC is dilated. * < 50% respiratory change. Consult Discharge Plan - Plan Referrals: Damián Cerna MD [Primary Care Provider] - <Julius Elizabeth - Last Filed: 04/12/18 15:16> Hospitalist Progress Note - Encounter Date of Encounter: 04/12/18 Internal Medicine: Result - Labs CBC & Chem 7: 04/12/18 04:04 04/12/18 04:04 Labs: Short CBC 04/12/18 Range/Units 04:04 WBC 6.0 (4.3-11.1) K/mcL Hgb 12.5 L (12.9-16.9) g/dL Hct 36.1 L (37.5-50.1) % Plt Count 238 (140-400) K/mcL Neutrophils # 5.3 (1.6-8.9) K/mcL BMP 04/12/18 04:04 Sodium 138 Potassium 3.7 Chloride 97 L Carbon Dioxide 29 BUN 43 H Creatinine 1.41 H Glucose 192 H Calcium 8.4 L Cardiac Enzymes 04/11/18 04/11/18 Range/Units 15:16 21:45 Troponin I 0.06 H* 0.05 H* (< 0.04) ng/mL - ABG Interpretation ABG results: ABG ABG pH 7.39 pH Units (7.32-7.45) 04/11/18 13:06 ABG pCO2 48 mmHg (35-45) H 04/11/18 13:06 ABG pO2 56 mmHg (85-104) L 04/11/18 13:06 ABG O2 Saturation 88 % (95-98) L 04/11/18 13:06 - Impressions Impressions Chest X-Ray 04/11/18 09:02 IMPRESSION: 1. Airspace opacities, right greater than left. Differential considerations are broad and include asymmetric edema, pneumonia, or hemorrhage. D/ / 04/11/2018 09:37:45 Kylee Cosme MD / [facility] Interpreting Provider: Kylee Cosme MD Echocardiogram 04/11/18 13:31 Impressions: LVEF 45%. LV segmental wall motion abnormalities (see Diagram below). Indeterminate diastolic function. Atypical septal motion consistent with bundle branch block. RV size is normal with low normal systolic function. Bi-atrial enlargement. Mild-moderate mitral regurgitation. Mild tricuspid regurgitation. Mild pulmonary hypertension. Left Ventricular Wall Motion: Rest Echo Findings The apex, apical inferior, apical anterior, mid anterior, basal anterior, apical septal, mid inferior septal, basal inferior septal, apical lateral, mid anterior lateral, basal anterior lateral, mid anterior septal and basal anterior septal green were hypokinetic. The mid inferior, basal inferior and basal inferior lateral green were akinetic. The mid inferior lateral wall was not visualized. Findings: Study Quality * Technically adequate exam. ECG Findings * Atrial fibrillation. Left Ventricle * LVEF 45%. * Indeterminate diastolic function. * Atypical septal motion consistent with bundle branch block. * LV chamber size and wall thickness are normal. Right Ventricle * RV size is normal with low normal systolic function. Left Atrium * Severely dilated left atrium. Right Atrium * Moderately dilated right atrium. Aortic Valve * No aortic regurgitation. * Aortic valve not optimally visualized. * No aortic stenosis. Mitral Valve * No mitral stenosis. * Mild-moderate mitral regurgitation. * Normal mitral valve structure. Tricuspid Valve * Tricuspid valve not well visualized. * Mild tricuspid regurgitation. * Estimated RA pressure is 20 mmHg. * Estimated RVSP is 42 mmHg. * Mild pulmonary hypertension. Pulmonic Valve * Pulmonic valve is not well visualized. * No pulmonic stenosis. * No pulmonic regurgitation. Pulmonary Artery * Pulmonary artery not well visualized. Aorta * Normally sized aortic root. Pericardium * There is no pericardial effusion present. Interatrial Septum * No evidence of PFO by color Doppler. IVC * The IVC is dilated. * < 50% respiratory change. Videofluoroscopic Swallow 04/12/18 08:58 IMPRESSION: Partial laryngectomy without evidence of epiglottis Aspiration of thin barium and honey consistency. This does not clear with use of a cough Please see separate speech pathology report for full discussion of findings and recommendations. D/ / Liborio Hoff MD / Liborio Hoff MD Interpreting Provider: Liborio Hoff MD - Attending Attestation Patient seen and examined independently, including review of objective data including labs. 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 Pt improving slightly today. Switch abx to Unasyn, wean O2 as able, check modified barium swallow, and continue nebs and steroids. _ <Malgorzata Pelayo - Last Filed: 04/12/18 14:12> (3) COPD (chronic obstructive pulmonary disease) Qualifiers: COPD type: unspecified COPD Qualified Code(s): J44.9 - Chronic obstructive pulmonary disease, unspecified (4) A-fib Qualifiers: Atrial fibrillation type: unspecified Qualified Code(s): I48.91 - Unspecified atrial fibrillation (7) Carotid arterial disease Qualifiers: Laterality: bilateral
[2018-04-12] MEDS ORDERED: E-Z-PAQUE (BARIUM SULF) SUSP 1 BOTTLE PO ONE (14:44)
[2018-04-12] MEDS: Ampicillin/Sulbactam 3,000 MG in 0.9 % Sodium Chloride Mini Bag 100 ML IVPB SCH ×2 (16:25→23:35)
[2018-04-12] MEDS: Tiotropium 18 MCG inhalation IH SCH (18:23)
[2018-04-12] MEDS: Budesonide/Formoterol 160/4.5 1 PUFF INH IH SCH (19:53)
[2018-04-12] MEDS: ALPRAZolam 1 MG TABLET PO PRN ×2 (20:08→21:03)
[2018-04-12] MEDS: amLODIPine 5 MG TABLET PO SCH (21:03)
[2018-04-13] MEDS: Ampicillin/Sulbactam 3,000 MG in 0.9 % Sodium Chloride Mini Bag 100 ML IVPB SCH ×3 (01:28→10:20)
[2018-04-13] MEDS: Ipratropium/Albuterol Neb 3 ML IH SCH ×3 (03:29→11:06)
[2018-04-13 03:59] LABS: BUN/Creatinine Ratio 35 (6-26); Blood Urea Nitrogen 51 mg/dL (8-23); Calcium 8.8 mg/dL (8.6-10.3); Carbon Dioxide 31 mEq/L (23-29); Chloride 98 mEq/L (98-107); Glucose 207 mg/dL (70-105); Osmolality,Calculated 308 (280-300); Potassium 3.6 mEq/L (3.5-5.1); Sodium 139 mEq/L (136-145); eGFR For Non-African Americans 50 (> 60)
[2018-04-13] MEDS: *HR* Enoxaparin 80 MG/0.8 ML SYRINGE SQ SCH (07:00)
[2018-04-13] MEDS: methylPREDNISolone 125 MG/2 ML VIAL IVP SCH ×2 (07:01→11:43)
[2018-04-13] MEDS: Budesonide/Formoterol 160/4.5 1 PUFF INH IH SCH (07:24)
[2018-04-13] MEDS: Aspirin Enteric Coated 81 MG Tablet PO SCH (08:55)
[2018-04-13] MEDS: Pantoprazole 40 MG VIAL IVP SCH (08:56)
[2018-04-13] MEDS: Tiotropium 18 MCG inhalation IH SCH (11:05)
[2018-04-13 12:12] VITALS: BP 127/69
--- NOTE | 2018-04-13 12:12 | Discharge Summary ---
- NOTES TO OUTPATIENT PROVIDER Notes to Outpatient Provider: Aspiration pneumonia, new home O2 for underlying COPD Date of Encounter: 04/13/18 Time of Encounter: 12:07 - Discharge Diagnosis (1) Aspiration pneumonia Priority: Primary Status: Acute Qualifiers: Aspiration pneumonia type: unspecified Laterality: bilateral Lung locatio n: unspecified part of lung Qualified Code(s): J69.0 - Pneumonitis due to inhalation of food and vomit (2) Acute on chronic respiratory failure with hypoxemia Priority: Secondary Status: Acute (3) COPD with exacerbation Priority: Secondary Status: Acute Hospital course: Dear Doctors, I recently had the opportunity to care for this patient during their recent hospital stay at [facility]. Keith Thompson is a 62 M w hx CAD, CVA, HLD, HTN, COPD, laryngeal cancer s/p supraglottic resection, who presented at time of admission with cough, shortness of breath, and hypoxia. Patient was sent from PCP to ED for hypoxia of 55% on room air. In the ED, CT showed multifocal pneumonia. Admitted for further management. In the hospital, swallow eval grossly abnormal and reflex modified barium swallow confirmed dysphagia. Unfortunately, patient is unwilling to comply with diet recommendations. For his pneumonia, it was felt to represent aspiration pneumonia and patient was de-escalated to Augmentin on discharge. He was able to quickly wean from BiPAP down to 2L nasal cannula, but on discharge required 2L to maintain sats >88% while ambulating, indicating new diagnosis of chronic hypoxemic respiratory failure from his known COPD and will need home O2. Pt quit smoking 02/05/2018. 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 Please contact me with any questions or concerns regarding their hospital stay. Sincerely, Julius Elizabeth MD - Discharge Medications Prescriptions: New Amoxicillin/Clavulanate [Augmentin] 875 mg PO BID #10 tablet predniSONE [PredniSONE] 40 mg PO DAILY #5 tablet Tiotropium [Spiriva] 18 mcg IH DAILYR #30 inh Oxygen 2 each .ROUTE AD #99 each Continue Simvastatin [Zocor] 40 mg PO HS Clopidogrel [Plavix] 75 mg PO HS Atenolol 100 mg PO DAILY Aspirin [Lo-Dose Aspirin EC] 81 mg PO HS Amlodipine Besylate 10 mg PO HS ALPRAZolam [Xanax 1 MG Tablet] 1 mg PO QAM ALPRAZolam [Xanax 1 MG Tablet] 2 mg PO HS Home Medications: ALPRAZolam [Xanax 1 MG Tablet] 1 mg PO QAM 08/25/16 [History] Amlodipine Besylate 10 mg PO HS 08/25/16 [History] Aspirin [Lo-Dose Aspirin EC] 81 mg PO HS 08/25/16 [History] Atenolol 100 mg PO DAILY 08/25/16 [History] Clopidogrel [Plavix] 75 mg PO HS 08/25/16 [History] Simvastatin [Zocor] 40 mg PO HS 08/25/16 [History] ALPRAZolam [Xanax 1 MG Tablet] 2 mg PO HS 04/12/18 [History] Amoxicillin/Clavulanate [Augmentin] 875 mg PO BID #10 tablet 04/13/18 [Rx] Oxygen 2 each .ROUTE AD #99 each 04/13/18 [Rx] Tiotropium [Spiriva] 18 mcg IH DAILYR #30 inh 04/13/18 [Rx] predniSONE [PredniSONE] 40 mg PO DAILY #5 tablet 04/13/18 [Rx] Allergies/Adverse Reactions: Allergy/AdvReac Type Severity Reaction Status Date / Time codeine AdvReac Gastrointestinal Verified 01/14/18 14:14 Upset Date of admission: 04/11/18 17:18 Primary care physician: Damián Ceran MD Consults: 04/11/18 19:44 Consult to Speech Therapy [CONS] Routine Comment: Evaluate, develop and implement POC Reason for Consult: Failed nursing bedside swallow. Please evaluate and treat. Call Completed: No 04/12/18 16:15 Consult to Nurse Navigator [CONS] Routine Comment: pneumonia 04/12/18 16:41 Consult to Respiratory Therapy [CONS] Routine Reason for Consult: COPD education Call Completed: No - Constitutional Vitals: Temp Pulse Resp BP Pulse Ox 97.5 F L 88 16 123/96 91 04/13/18 07:55 04/13/18 07:55 04/13/18 11:06 04/13/18 07:55 04/13/18 11:52 General appearance: Present: A&O X 3, answers questions appropriately Exam: General: NAD, AAOx3, good eye contact, chronically ill appearing Thoracic: Bilateral expiratory wheezes, diffuse rhonchi Cardio: Normal S1 and S2, irregularly rhythm, regular rate Abdomen: Soft, nontender Extremities: Warm, well perfused. DP pulses 2+ b/l. No edema. Skin: Intact. No rashes, bruises, or ulcers Neuro: Awake, fully oriented. Speech fluent - Patient Status Disposition: Home, Self-Care Condition: Fair Functional capacity at discharge: independent ambulation Overall status at discharge: patient is progressing back to baseline - Discharge Instructions Instructions: Pneumonia (DC) Follow Up With: Damián Cerna MD [Primary Care Provider] - (in 1 week) - Diet and Activity Activity: resume usual activities as tolerated, wear oxygen at all times Diet: advance to your usual diet
== END 2018-04-13 14:38 | disposition home or self-care (01) | DRG 177 ==
LOC: 2SOUTHHOLD 08:51 → EMEROOARM 08:51 → 2SOUTHHOLD 13:31 → SUATTDRO 17:18
PROVIDERS: ADMIT Internal Medicine; ATTEND Internal Medicine

== ENCOUNTER 2019-01-16 13:51 | Inpatient (IN) ==
[2019-01-16] MEDS ORDERED: Ipratropium/Albuterol Neb 3 ML ONE (13:56)
[2019-01-16] MEDS ORDERED: methylPREDNISolone 125 MG/2 ML VIAL IVP ONE (13:58)
[2019-01-16] MEDS ORDERED: Ipratropium/Albuterol Neb 3 ML IH ONE ×3 (13:59→14:15)
[2019-01-16 14:31] LABS: ABG Base Excess 9 mEq/L (-2 to 3); ABG HCO3 37 mEq/L (21-27); ABG Oxygen Saturation 84 % (95-98); ABG PCO2 66 mmHg (35-45); ABG PH 7.35 pH Units (7.32-7.45); ABG PO2 53 mmHg (85-104); ABG TCO2 39 mEq/L (20-26)
[2019-01-16 14:39] LABS: Basophils % 0.2 %; Hemoglobin 13.2 g/dL (12.9-16.9); Immature Granulocytes % 0.6 % (0-4); Lymphocytes # 0.6 K/mcL (0.6-4.6); Lymphocytes % 3.5 %; Mean Corpuscular HGB Conc 33.8 g/dL (31.6-35.5); Mean Corpuscular Volume 97.5 fL (83.0-100.0); Monocytes # 1.6 K/mcL (0.0-1.3); Monocytes % 10.2 %; Neutrophils # 13.5 K/mcL (1.6-8.9); Platelet Count 231 K/mcL (140-400); Red Cell Distribution Width 14.3 % (11.5-14.5); Segmented Neutrophils % 85.5 %; White Blood Count 15.8 K/mcL (4.3-11.1)
[2019-01-16 15:02] LABS: Alanine Aminotransferase 24 Units/L (7-52); Albumin 4.2 g/dL (3.5-5.7); Albumin/Globulin Ratio 1.6 (1.1-2.2); Alkaline Phosphatase 58 Units/L (34-104); Aspartate Amino Transferase 25 Units/L (13-39); BUN/Creatinine Ratio 45 (6-26); Bilirubin,Direct 0.2 mg/dL (0.0-0.2); Bilirubin,Indirect 0.6 mg/dL (0.0-1.0); Bilirubin,Total 0.8 mg/dL (0.3-1.0); Blood Urea Nitrogen 42 mg/dL (8-23); Calcium 9.8 mg/dL (8.6-10.3); Carbon Dioxide 32 mEq/L (23-29); Chloride 101 mEq/L (98-107); Globulin 2.6 g/dL (2.4-3.5); Glucose 108 mg/dL (70-105); Osmolality,Calculated 303 (280-300); Potassium 4.5 mEq/L (3.5-5.1); Sodium 141 mEq/L (136-145); Total Protein 6.8 g/dL (6.4-8.9); Troponin I < 0.03 ng/mL (< 0.04); eGFR For African Americans > 60 (> 60); eGFR For Non-African Americans > 60 (> 60)
[2019-01-16] MEDS ORDERED: Furosemide 40 MG/4 ML VIAL IVP ONE (15:26)
[2019-01-16] MEDS ORDERED: Piperacillin/Tazobactam 3.375 GM in Water for inj. (sterile) 20 ML IVP ONE (15:42)
[2019-01-16] MEDS ORDERED: Ondansetron ODT 4 MG TAB.RAPDIS SL PRN (16:26)
[2019-01-16] MEDS ORDERED: Acetaminophen 325 MG TABLET PO PRN (16:26)
[2019-01-16] MEDS ORDERED: Naloxone 0.4 MG/ML INJ IVP PRN (16:26)
[2019-01-16] MEDS ORDERED: *HR* Metoprolol 5 MG/5 ML VIAL IVP PRN (18:14)
[2019-01-16 19:57] LABS: Adenovirus Not Detected (Not Detect); Coronavirus 229E Not Detected (Not Detect); Coronavirus HKU1 Not Detected (Not Detect); Coronavirus NL63 Not Detected (Not Detect); Coronavirus OC43 Not Detected (Not Detect); Human Metapneumovirus Not Detected (Not Detect); Human Rhinovirus/Enterovirus Not Detected (Not Detect); Influenza A Subtype 2009 H1 Not Detected (Not Detect); Influenza A Untypeable Not Detected (Not Detect); Influenza B Not Detected (Not Detect)
[2019-01-16 19:58] LABS: Bordetella Pertussis Not Detected (Not Detect); Chlamydophila pneumoniae Not Detected (Not Detect); Mycoplasma pneumoniae Not Detected (Not Detect); Parainfluenza Virus 1 Not Detected (Not Detect); Parainfluenza Virus 2 Not Detected (Not Detect); Parainfluenza Virus 3 Not Detected (Not Detect); Parainfluenza Virus 4 Not Detected (Not Detect); Respiratory Syncytial Virus Not Detected (Not Detect)
[2019-01-16] MEDS: ALPRAZolam 1 MG TABLET GTUBE SCH (20:07)
[2019-01-16] MEDS: Diltiazem SR (12hr) 60 MG CAPSULE PO SCH (20:07)
[2019-01-16] MEDS ORDERED: Furosemide 40 MG in 0.9 % Sodium Chloride 50 ML IV SCH (21:00)
[2019-01-16] MEDS: Ipratropium/Albuterol Neb 3 ML IH SCH (22:11)
[2019-01-16] MEDS: Budesonide/Formoterol 160/4.5 1 PUFF INH IH SCH (22:11)
[2019-01-17] MEDS: Ipratropium/Albuterol Neb 3 ML IH SCH ×4 (03:31→23:29)
[2019-01-17 04:31] LABS: Basophils % 0.1 %; Hematocrit 33.7 % (37.5-50.1); Immature Granulocytes % 0.5 % (0-4); Lymphocytes # 0.2 K/mcL (0.6-4.6); Lymphocytes % 2.1 %; Mean Corpuscular HGB Conc 33.8 g/dL (31.6-35.5); Mean Corpuscular Hemoglobin 32.1 pg (28.0-33.3); Mean Corpuscular Volume 94.9 fL (83.0-100.0); Mean Platelet Volume 11.1 fL (9.4-12.4); Monocytes # 0.2 K/mcL (0.0-1.3); Monocytes % 2.1 %; Neutrophils # 10.7 K/mcL (1.6-8.9); Platelet Count 191 K/mcL (140-400); Red Blood Count 3.55 M/mcL (4.19-5.50); Segmented Neutrophils % 95.2 %; White Blood Count 11.2 K/mcL (4.3-11.1)
[2019-01-17 04:33] LABS: Hemoglobin 11.4 g/dL (12.9-16.9)
[2019-01-17 04:52] LABS: BUN/Creatinine Ratio 42 (6-26); Blood Urea Nitrogen 38 mg/dL (8-23); Carbon Dioxide 37 mEq/L (23-29); Chloride 99 mEq/L (98-107); Glucose 139 mg/dL (70-105); Magnesium 2.1 mg/dL (1.6-2.6); Osmolality,Calculated 307 (280-300); Phosphorous 4.2 mg/dL (2.7-4.5); Potassium 3.9 mEq/L (3.5-5.1); Sodium 143 mEq/L (136-145); eGFR For African Americans > 60 (> 60); eGFR For Non-African Americans > 60 (> 60)
[2019-01-17] MEDS ORDERED: GuaiFENesin Liq 200 MG/10 ML UDC GTUBE PRN (07:52)
[2019-01-17] MEDS ORDERED: *HR* Rivaroxaban 15 MG TABLET PO SCH (09:00)
[2019-01-17] MEDS ORDERED: predniSONE 20 MG TABLET PO SCH (09:00)
[2019-01-17] MEDS: Budesonide/Formoterol 160/4.5 1 PUFF INH IH SCH ×2 (09:42→23:29)
[2019-01-17] MEDS: amLODIPine 5 MG TABLET GTUBE SCH (10:06)
[2019-01-17] MEDS: predniSONE 20 MG TABLET GTUBE SCH (10:07)
[2019-01-17] MEDS: ALPRAZolam 1 MG TABLET GTUBE SCH ×2 (10:10→22:38)
[2019-01-17] MEDS: Furosemide 40 MG/4 ML VIAL IVP SCH (10:10)
[2019-01-17] MEDS ORDERED: *HR* OxyCODONE/APAP 5/325 TABLET GTUBE PRN (10:33)
[2019-01-17] MEDS ORDERED: Azithromycin 500 MG in 0.9 % Sodium Chloride 250 ML IVPB ONE (10:53)
[2019-01-17] MEDS: Diltiazem SR (12hr) 60 MG CAPSULE PO SCH (14:38)
[2019-01-17] MEDS: *HR* Rivaroxaban 15 MG TABLET PO SCH (16:58)
[2019-01-18] MEDS: Ipratropium/Albuterol Neb 3 ML IH SCH ×5 (04:12→21:50)
[2019-01-18 06:20] LABS: Hematocrit 32.5 % (37.5-50.1); Hemoglobin 11.2 g/dL (12.9-16.9); Mean Corpuscular HGB Conc 34.5 g/dL (31.6-35.5); Mean Corpuscular Hemoglobin 32.5 pg (28.0-33.3); Mean Corpuscular Volume 94.2 fL (83.0-100.0); Mean Platelet Volume 11.1 fL (9.4-12.4); Platelet Count 200 K/mcL (140-400); Red Blood Count 3.45 M/mcL (4.19-5.50); Red Cell Distribution Width 14.1 % (11.5-14.5)
[2019-01-18 06:22] LABS: White Blood Count 22.2 K/mcL (4.3-11.1)
[2019-01-18 06:28] LABS: VBG HCO3 37 mEq/L (21-27); VBG PCO2 42 mmHg (41-51); VBG PH 7.56 pH Units (7.32-7.42); VBG PO2 174 mmHg (25-50)
[2019-01-18 06:42] LABS: BUN/Creatinine Ratio 52 (6-26); Blood Urea Nitrogen 49 mg/dL (8-23); Calcium 8.7 mg/dL (8.6-10.3); Carbon Dioxide 37 mEq/L (23-29); Chloride 97 mEq/L (98-107); Glucose 129 mg/dL (70-105); Osmolality,Calculated 307 (280-300); Potassium 3.7 mEq/L (3.5-5.1); Sodium 141 mEq/L (136-145); eGFR For African Americans > 60 (> 60); eGFR For Non-African Americans > 60 (> 60)
[2019-01-18] MEDS: Budesonide/Formoterol 160/4.5 1 PUFF INH IH SCH ×2 (09:47→21:51)
[2019-01-18] MEDS: Azithromycin 500 MG in 0.9 % Sodium Chloride 250 ML IVPB SCH (10:25)
[2019-01-18] MEDS: Furosemide 40 MG/4 ML VIAL IVP SCH (10:26)
[2019-01-18] MEDS: predniSONE 20 MG TABLET GTUBE SCH (10:27)
[2019-01-18] MEDS: amLODIPine 5 MG TABLET GTUBE SCH (10:27)
[2019-01-18] MEDS: ALPRAZolam 1 MG TABLET GTUBE SCH ×2 (13:34→19:55)
[2019-01-18] MEDS: *HR* Rivaroxaban 15 MG TABLET PO SCH (16:53)
[2019-01-18] MEDS: *HR* OxyCODONE/APAP 5/325 TABLET GTUBE PRN (16:53)
[2019-01-18] MEDS: Acetylcysteine 10% 2 ML INHSOL IH SCH ×2 (19:52→21:51)
[2019-01-18 20:13] LABS: ABG Base Excess 16 mEq/L (-2 to 3); ABG HCO3 39 mEq/L (21-27); ABG Oxygen Saturation 97 % (95-98); ABG PCO2 39 mmHg (35-45); ABG PH 7.61 pH Units (7.32-7.45); ABG PO2 76 mmHg (85-104); ABG TCO2 40 mEq/L (20-26)
[2019-01-19] MEDS: Ipratropium/Albuterol Neb 3 ML IH SCH ×4 (03:45→21:22)
[2019-01-19 06:52] LABS: Basophils % 0.1 %; Hematocrit 34.7 % (37.5-50.1); Hemoglobin 11.4 g/dL (12.9-16.9); Immature Granulocytes % 0.8 % (0-4); Lymphocytes # 0.4 K/mcL (0.6-4.6); Lymphocytes % 1.9 %; Mean Corpuscular HGB Conc 32.9 g/dL (31.6-35.5); Mean Corpuscular Hemoglobin 31.8 pg (28.0-33.3); Mean Corpuscular Volume 96.9 fL (83.0-100.0); Mean Platelet Volume 11.5 fL (9.4-12.4); Monocytes # 0.9 K/mcL (0.0-1.3); Monocytes % 4.9 %; Neutrophils # 16.7 K/mcL (1.6-8.9); Platelet Count 197 K/mcL (140-400); Red Blood Count 3.58 M/mcL (4.19-5.50); Red Cell Distribution Width 14.1 % (11.5-14.5); Segmented Neutrophils % 92.3 %; White Blood Count 18.1 K/mcL (4.3-11.1)
[2019-01-19 07:12] LABS: BUN/Creatinine Ratio 54 (6-26); Blood Urea Nitrogen 52 mg/dL (8-23); Calcium 8.7 mg/dL (8.6-10.3); Carbon Dioxide 38 mEq/L (23-29); Chloride 94 mEq/L (98-107); Glucose 132 mg/dL (70-105); Osmolality,Calculated 308 (280-300); Potassium 3.6 mEq/L (3.5-5.1); Sodium 141 mEq/L (136-145); eGFR For African Americans > 60 (> 60); eGFR For Non-African Americans > 60 (> 60)
[2019-01-19] MEDS: amLODIPine 5 MG TABLET GTUBE SCH (09:26)
[2019-01-19] MEDS: Furosemide 40 MG/4 ML VIAL IVP SCH (09:26)
[2019-01-19] MEDS: predniSONE 20 MG TABLET GTUBE SCH (09:26)
[2019-01-19] MEDS: Azithromycin 500 MG in 0.9 % Sodium Chloride 250 ML IVPB SCH (09:27)
[2019-01-19] MEDS: Budesonide/Formoterol 160/4.5 1 PUFF INH IH SCH ×2 (09:49→21:22)
[2019-01-19] MEDS: Acetylcysteine 10% 2 ML INHSOL IH SCH ×3 (09:49→21:22)
[2019-01-19] MEDS: ALPRAZolam 1 MG TABLET GTUBE SCH ×2 (12:48→19:43)
[2019-01-19] MEDS: *HR* Rivaroxaban 15 MG TABLET PO SCH (16:52)
[2019-01-20] MEDS: *HR* OxyCODONE/APAP 5/325 TABLET GTUBE PRN (00:23)
[2019-01-20] MEDS: Ipratropium/Albuterol Neb 3 ML IH SCH ×4 (03:44→22:38)
[2019-01-20 05:23] LABS: Basophils % 0.2 %; Hematocrit 35.3 % (37.5-50.1); Hemoglobin 11.6 g/dL (12.9-16.9); Lymphocytes # 0.5 K/mcL (0.6-4.6); Lymphocytes % 3.1 %; Mean Corpuscular HGB Conc 32.9 g/dL (31.6-35.5); Mean Corpuscular Volume 97.2 fL (83.0-100.0); Mean Platelet Volume 11.2 fL (9.4-12.4); Monocytes # 1.1 K/mcL (0.0-1.3); Monocytes % 6.2 %; Neutrophils # 15.3 K/mcL (1.6-8.9); Nucleated Red Blood Cells 0.3 /100 WBC (0); Platelet Count 207 K/mcL (140-400); Red Blood Count 3.63 M/mcL (4.19-5.50); Red Cell Distribution Width 14.3 % (11.5-14.5); Segmented Neutrophils % 89.5 %; White Blood Count 17.1 K/mcL (4.3-11.1)
[2019-01-20 05:43] LABS: BUN/Creatinine Ratio 56 (6-26); Blood Urea Nitrogen 55 mg/dL (8-23); Calcium 8.8 mg/dL (8.6-10.3); Carbon Dioxide 38 mEq/L (23-29); Chloride 94 mEq/L (98-107); Glucose 118 mg/dL (70-105); Osmolality,Calculated 310 (280-300); Potassium 3.6 mEq/L (3.5-5.1); Sodium 142 mEq/L (136-145); eGFR For African Americans > 60 (> 60); eGFR For Non-African Americans > 60 (> 60)
[2019-01-20] MEDS: Budesonide/Formoterol 160/4.5 1 PUFF INH IH SCH ×2 (09:22→22:39)
[2019-01-20] MEDS: Acetylcysteine 10% 2 ML INHSOL IH SCH ×3 (09:23→22:39)
[2019-01-20] MEDS: amLODIPine 5 MG TABLET GTUBE SCH (09:26)
[2019-01-20] MEDS: predniSONE 20 MG TABLET GTUBE SCH (09:26)
[2019-01-20] MEDS: Furosemide 40 MG/4 ML VIAL IVP SCH (09:26)
[2019-01-20] MEDS: Azithromycin 500 MG in 0.9 % Sodium Chloride 250 ML IVPB SCH (09:27)
[2019-01-20 10:05] LABS: ABG Base Excess 14 mEq/L (-2 to 3); ABG HCO3 39 mEq/L (21-27); ABG Oxygen Saturation 80 % (95-98); ABG PCO2 51 mmHg (35-45); ABG PH 7.49 pH Units (7.32-7.45); ABG PO2 42 mmHg (85-104); ABG TCO2 41 mEq/L (20-26)
[2019-01-20] MEDS: ALPRAZolam 1 MG TABLET GTUBE SCH ×2 (12:58→20:39)
[2019-01-20] MEDS ORDERED: Isovue-370 500 ML BOTTLE IVP ONE (15:53)
[2019-01-20] MEDS: acetaZOLAMIDE 250 MG TABLET PO SCH (17:08)
[2019-01-20] MEDS: Sennosides/Docusate Sodium TABLET GTUBE SCH ×2 (17:08→20:39)
[2019-01-20] MEDS: *HR* Rivaroxaban 15 MG TABLET PO SCH (17:08)
[2019-01-21] MEDS: acetaZOLAMIDE 250 MG TABLET PO SCH (00:30)
[2019-01-21 02:22] LABS: Basophils % 0.3 %; Hematocrit 35.2 % (37.5-50.1); Hemoglobin 12.2 g/dL (12.9-16.9); Lymphocytes # 0.4 K/mcL (0.6-4.6); Mean Corpuscular HGB Conc 34.7 g/dL (31.6-35.5); Mean Corpuscular Hemoglobin 32.3 pg (28.0-33.3); Mean Corpuscular Volume 93.1 fL (83.0-100.0); Mean Platelet Volume 11.1 fL (9.4-12.4); Monocytes # 0.8 K/mcL (0.0-1.3); Monocytes % 5.3 %; Nucleated Red Blood Cells 0.3 /100 WBC (0); Platelet Count 191 K/mcL (140-400); Red Blood Count 3.78 M/mcL (4.19-5.50); Red Cell Distribution Width 14.3 % (11.5-14.5); Segmented Neutrophils % 90.4 %; White Blood Count 14.3 K/mcL (4.3-11.1)
[2019-01-21 02:49] LABS: BUN/Creatinine Ratio 54 (6-26); Blood Urea Nitrogen 49 mg/dL (8-23); Calcium 8.7 mg/dL (8.6-10.3); Carbon Dioxide 31 mEq/L (23-29); Chloride 95 mEq/L (98-107); Glucose 150 mg/dL (70-105); Osmolality,Calculated 302 (280-300); Potassium 3.4 mEq/L (3.5-5.1); Sodium 138 mEq/L (136-145); eGFR For African Americans > 60 (> 60); eGFR For Non-African Americans > 60 (> 60)
[2019-01-21] MEDS: Ipratropium/Albuterol Neb 3 ML IH SCH ×4 (04:18→22:27)
[2019-01-21] MEDS: Acetylcysteine 10% 2 ML INHSOL IH SCH ×3 (04:19→22:27)
[2019-01-21] MEDS: Sennosides/Docusate Sodium TABLET GTUBE SCH ×2 (08:59→20:55)
[2019-01-21] MEDS: amLODIPine 5 MG TABLET GTUBE SCH (08:59)
[2019-01-21] MEDS: predniSONE 20 MG TABLET GTUBE SCH (08:59)
[2019-01-21] MEDS ORDERED: Furosemide 40 MG TABLET PO SCH (09:00)
[2019-01-21] MEDS ORDERED: Azithromycin 250 MG TABLET PO SCH (09:00)
[2019-01-21] MEDS ORDERED: Potassium Chloride Elixir 20 MEQ/15 ML UDC GTUBE ONE (10:19)
[2019-01-21] MEDS: Budesonide/Formoterol 160/4.5 1 PUFF INH IH SCH ×2 (10:35→22:27)
[2019-01-21] MEDS: levoFLOXacin 750 MG TABLET PO SCH (10:42)
[2019-01-21] MEDS: ALPRAZolam 1 MG TABLET GTUBE SCH ×2 (12:25→20:56)
[2019-01-22] MEDS: Ipratropium/Albuterol Neb 3 ML IH SCH ×4 (03:58→22:39)
[2019-01-22] MEDS: Acetylcysteine 10% 2 ML INHSOL IH SCH ×3 (03:58→22:39)
[2019-01-22 06:40] LABS: Basophils # 0.1 K/mcL (0.0-0.2); Basophils % 0.3 %; Hematocrit 35.7 % (37.5-50.1); Hemoglobin 12.4 g/dL (12.9-16.9); Immature Granulocytes % 1.4 % (0-4); Lymphocytes # 0.5 K/mcL (0.6-4.6); Lymphocytes % 3.2 %; Mean Corpuscular HGB Conc 34.7 g/dL (31.6-35.5); Mean Corpuscular Hemoglobin 32.4 pg (28.0-33.3); Mean Corpuscular Volume 93.2 fL (83.0-100.0); Mean Platelet Volume 11.4 fL (9.4-12.4); Monocytes # 0.9 K/mcL (0.0-1.3); Monocytes % 5.9 %; Neutrophils # 13.2 K/mcL (1.6-8.9); Nucleated Red Blood Cells 0.3 /100 WBC (0); Platelet Count 239 K/mcL (140-400); Red Blood Count 3.83 M/mcL (4.19-5.50); Red Cell Distribution Width 14.2 % (11.5-14.5); Segmented Neutrophils % 89.2 %; White Blood Count 14.7 K/mcL (4.3-11.1)
[2019-01-22 06:59] LABS: BUN/Creatinine Ratio 53 (6-26); Blood Urea Nitrogen 52 mg/dL (8-23); Calcium 9.1 mg/dL (8.6-10.3); Carbon Dioxide 30 mEq/L (23-29); Chloride 99 mEq/L (98-107); Glucose 110 mg/dL (70-105); Osmolality,Calculated 305 (280-300); Potassium 3.8 mEq/L (3.5-5.1); Sodium 140 mEq/L (136-145); eGFR For African Americans > 60 (> 60); eGFR For Non-African Americans > 60 (> 60)
[2019-01-22 09:32] LABS: Albumin 3.2 g/dL (3.5-5.7); Albumin/Globulin Ratio 1.5 (1.1-2.2); Globulin 2.1 g/dL (2.4-3.5); Lactate Dehydrogenase 244 Units/L (140-271); Total Protein 5.3 g/dL (6.4-8.9)
[2019-01-22] MEDS: Sennosides/Docusate Sodium TABLET GTUBE SCH ×2 (09:41→21:40)
[2019-01-22] MEDS: amLODIPine 5 MG TABLET GTUBE SCH (09:41)
[2019-01-22] MEDS: levoFLOXacin 750 MG TABLET PO SCH (09:41)
[2019-01-22] MEDS: predniSONE 20 MG TABLET GTUBE SCH (09:41)
[2019-01-22] MEDS: Budesonide/Formoterol 160/4.5 1 PUFF INH IH SCH ×2 (10:03→22:39)
[2019-01-22 10:25] LABS: Amylase,Pleural Fluid < 10 Units/L (No Ref Range); Glucose,Pleural Fluid 125 mg/dL (No Ref Range); LDH,Pleural Fluid 58 Units/L (No Ref Range); Total Protein,Pleural Fluid < 3.0 g/dL
[2019-01-22] MEDS: ALPRAZolam 1 MG TABLET GTUBE SCH ×2 (13:46→21:40)
[2019-01-22] MEDS: *HR* Rivaroxaban 15 MG TABLET PO SCH (18:24)
[2019-01-23] MEDS: Ipratropium/Albuterol Neb 3 ML IH SCH ×4 (03:25→22:11)
[2019-01-23 06:08] LABS: Basophils # 0.1 K/mcL (0.0-0.2); Basophils % 0.3 %; Eosinophils % 0.1 %; Hematocrit 35.9 % (37.5-50.1); Hemoglobin 11.9 g/dL (12.9-16.9); Immature Granulocytes % 1.2 % (0-4); Lymphocytes # 0.5 K/mcL (0.6-4.6); Lymphocytes % 2.9 %; Mean Corpuscular HGB Conc 33.1 g/dL (31.6-35.5); Mean Corpuscular Hemoglobin 31.8 pg (28.0-33.3); Mean Platelet Volume 11.2 fL (9.4-12.4); Monocytes # 0.9 K/mcL (0.0-1.3); Monocytes % 5.5 %; Neutrophils # 14.7 K/mcL (1.6-8.9); Nucleated Red Blood Cells 0.2 /100 WBC (0); Platelet Count 206 K/mcL (140-400); Red Blood Count 3.74 M/mcL (4.19-5.50); Red Cell Distribution Width 14.3 % (11.5-14.5); White Blood Count 16.4 K/mcL (4.3-11.1)
[2019-01-23 07:00] LABS: BUN/Creatinine Ratio 52 (6-26); Blood Urea Nitrogen 51 mg/dL (8-23); Calcium 8.9 mg/dL (8.6-10.3); Carbon Dioxide 28 mEq/L (23-29); Chloride 101 mEq/L (98-107); Glucose 104 mg/dL (70-105); Osmolality,Calculated 304 (280-300); Potassium 3.8 mEq/L (3.5-5.1); Sodium 140 mEq/L (136-145); eGFR For African Americans > 60 (> 60); eGFR For Non-African Americans > 60 (> 60)
[2019-01-23] MEDS: Acetylcysteine 10% 2 ML INHSOL IH SCH ×3 (10:13→22:11)
[2019-01-23] MEDS: Budesonide/Formoterol 160/4.5 1 PUFF INH IH SCH ×2 (10:13→22:11)
[2019-01-23] MEDS: levoFLOXacin 750 MG TABLET PO SCH (10:20)
[2019-01-23] MEDS: amLODIPine 5 MG TABLET GTUBE SCH (10:20)
[2019-01-23] MEDS: Sennosides/Docusate Sodium TABLET GTUBE SCH ×2 (10:21→21:36)
[2019-01-23] MEDS: predniSONE 20 MG TABLET GTUBE SCH (10:21)
[2019-01-23] MEDS: ALPRAZolam 1 MG TABLET GTUBE SCH ×2 (12:34→21:35)
[2019-01-23] MEDS: Furosemide 40 MG TABLET PO SCH (17:08)
[2019-01-23] MEDS: *HR* Rivaroxaban 15 MG TABLET PO SCH (17:08)
[2019-01-24] MEDS: Ipratropium/Albuterol Neb 3 ML IH SCH ×3 (04:12→15:39)
[2019-01-24 08:05] LABS: Basophils % 0.2 %; Eosinophils % 0.1 %; Hematocrit 33.6 % (37.5-50.1); Hemoglobin 11.2 g/dL (12.9-16.9); Immature Granulocytes % 1.3 % (0-4); Lymphocytes # 0.6 K/mcL (0.6-4.6); Lymphocytes % 3.8 %; Mean Corpuscular HGB Conc 33.3 g/dL (31.6-35.5); Mean Corpuscular Hemoglobin 31.8 pg (28.0-33.3); Mean Corpuscular Volume 95.5 fL (83.0-100.0); Mean Platelet Volume 10.8 fL (9.4-12.4); Monocytes # 0.9 K/mcL (0.0-1.3); Neutrophils # 13.2 K/mcL (1.6-8.9); Nucleated Red Blood Cells 0.2 /100 WBC (0); Platelet Count 202 K/mcL (140-400); Red Blood Count 3.52 M/mcL (4.19-5.50); Red Cell Distribution Width 14.5 % (11.5-14.5); Segmented Neutrophils % 88.6 %; White Blood Count 14.9 K/mcL (4.3-11.1)
[2019-01-24 08:19] LABS: BUN/Creatinine Ratio 53 (6-26); Blood Urea Nitrogen 53 mg/dL (8-23); Calcium 8.7 mg/dL (8.6-10.3); Carbon Dioxide 28 mEq/L (23-29); Chloride 101 mEq/L (98-107); Glucose 96 mg/dL (70-105); Osmolality,Calculated 306 (280-300); Potassium 3.9 mEq/L (3.5-5.1); Sodium 141 mEq/L (136-145); eGFR For African Americans > 60 (> 60); eGFR For Non-African Americans > 60 (> 60)
[2019-01-24] MEDS: predniSONE 20 MG TABLET GTUBE SCH (09:41)
[2019-01-24] MEDS: Sennosides/Docusate Sodium TABLET GTUBE SCH (09:42)
[2019-01-24] MEDS: Furosemide 40 MG TABLET PO SCH (09:42)
[2019-01-24] MEDS: amLODIPine 5 MG TABLET GTUBE SCH (09:42)
[2019-01-24] MEDS: levoFLOXacin 750 MG TABLET PO SCH (09:42)
[2019-01-24] MEDS: Budesonide/Formoterol 160/4.5 1 PUFF INH IH SCH (09:57)
[2019-01-24] MEDS: Acetylcysteine 10% 2 ML INHSOL IH SCH ×2 (09:57→15:39)
[2019-01-24] MEDS: ALPRAZolam 1 MG TABLET GTUBE SCH (13:17)
[2019-01-24 15:38] VITALS: BP 126/62
== END 2019-01-24 18:01 | disposition hospice, home (50) | DRG 291 ==
LOC: EMEROOARM 13:51 → 2ANU 13:51 → SUATTDRO 16:13 → 2ANU 17:11
PROVIDERS: ADMIT Internal Medicine; ATTEND Internal Medicine